=== PATIENT | female | born 1955 | race Two or more races ===

== ENCOUNTER 2024-06-29 16:13 | Inpatient (IN) | payer MEDICARE, MEDICAID, SELFPAY ==
[2024-06-29] VITALS (28 sets, daily range): BP systolic 123–213; BP diastolic 78–121; PULSE 89–109; RESP 15–99; TEMP 36.8–36.9; O2SAT 96–100; BMI 27.4; BMI 62.5; BMI 20.7
--- NOTE | 2024-06-29 16:15 | PC.NURSE ---
Pt coming from ED [facility]; per pt, I started noticing weakness on my legs this morning when I woke up but felt better throughout the day. Per pt's daughter, my aunt said she didn't notice any facial drooping this morning when she saw my mom at 10AM, but when I saw her at 4PM today, I noticed the drooping on the right side of her face. Pt's last known well at 1999 yesterday (06/28/2024) Pt reports having DM and HTN but does not take any meds at home.
--- NOTE | 2024-06-29 16:19 | EKG_ITS ---
[facility] Test Date: 2024-06-29 Pat Name: JYOTSNA CABRERA Department: Room: - Gender: Female Computerized [employer] Rec[employer]: : 1955 Requested By: Andre Stiles Order Number: [id number] Reading MD: Andre Stiles Measurements Intervals [place] Rate: 106 P: 50 W[place]: 162 QRS: -16 QRSD: 77 T: 30 QT: 362 QTc: 482 Interpretive Statements SINUS TACHYCARDIA MINIMAL ST DEPRESSION [0.025+ mV ST DEPRESSION] ABNORMAL RHYTHM ECG No previous ECG available for comparison /store/S0/[id number]
--- NOTE | 2024-06-29 16:19 | XR_ITS ---
Examination: CTA carotids with intravenous contrast CTA brain, head with intravenous contrast. 2-D sagittal, coronal reconstructions. 3-D reconstructions. Exam date and time: June 29, 2024 1631 hrs. Indications: Stroke alert, onset right facial droop left leg heaviness weakness beginning 8:00 PM last night CTDI: vol (mGy) 16.8 DLP: (mGycm) 980 Technique: Multiple CTA axial brain, head carotid images post intravenous contrast injection 75 cc, [id number]. 2-D sagittal, coronal reconstructions. 3-D reconstructions, 3-D post processing including vascular maximum intensity projection images. Low dose protocols were performed. One or more of the following dose reduction techniques were used; automated exposure control, adjustment of the mA and/or KV according to patient size, use of iterative reconstruction technique. Findings: 6 mm left thyroid nodule No significant common carotid carotid bifurcation or internal carotid artery stenoses Dominant left vertebral artery with no critical stenoses Suspicious for 60% stenosis right posterior cerebral artery junction P1 P2 segments Middle cerebral anterior cerebral branches demonstrate no large vessel occlusions Impression: No significant neck arterial stenoses Suspicious for 60% stenosis right posterior cerebral artery junction P1 P2 segments
--- NOTE | 2024-06-29 16:19 | EDNOTE_ITS ---
Neuro Symptoms Deficit-E/HPI General Chief Complaint: Neuro Symptoms/Deficit Stated Complaint: FACIAL DROOP SINCE THIS AM AT 7AM Time Seen by Provider: 06/29/24 16:18 Arrival date/time: 06/29/24 16:13 RME / HPI RME / HPI Narrative: 68-year-old female patient with significant history of hypertension, diabetes mellitus, not on any medication. Was noted to have facial droop since 10:00 this morning, patient's family/sister visited her this morning but did not tell anybody. Patient did not look at her face in the mirror since woke up at 7 this morning. Her daughter saw her few minutes prior to ER visit and decided to bring her to the emergency room. She was also noted to have slurring with speech. Patient denies any upper extremity weakness however she told me that her left lower leg feels heavy and ataxic. I asked her to walk and she was able to walk with mild dragging on the left. Patient denies any headache denies any dizziness denies any blurry vision. No medication was taken prior to arrival. Related Data Allergies Allergy/AdvReac Type Severity Reaction Status Date / Time No Known Allergies Allergy Verified 06/29/24 16:16 Review of Systems Review of Systems Narrative Review of Systems: Review of system reviewed and within normal limits except mentioned in HPI ED Exam Narrative Physical exam: VITAL SIGNS: Reviewed. GENERAL APPEARANCE: Alert and interactive, follows commands, no acute distress, GCS of 15 HEAD AND FACE: Facial symmetry/facial droop noted on the left, tongue midline on protrusion ENT: PERRL, pink conjunctivitis, eyelid no trauma, Mucous membrane moist. NECK: Supple, nontender, no nuchal rigidity. CHEST: No tenderness, no crepitus, no paradoxical movement, no retractions. LUNGS: Clear, well ventilated, symmetric, no rales, no wheezing, no ronchi, no stridor, good breath sounds bilaterally. HEART: Regular rate, regular rhythm, no murmur, no gallops. ABDOMEN: Soft, positive bowel sounds, nondistended, no guarding, nontender, no rebound, no masses, RECTAL: Deferred. GENITAL: Deferred. NEUROLOGICAL: Gross motor function intact sensory function intact, Appropriate for age. MUSCULOSKELETAL: low back nontender, full range of motion. EXTREMITIES: Nontender, full range of motion bilateral lower extremity, slight weakness on the left lower, bilateral upper extremity no weakness noted handgrip is equal and strong, no drifting noted SKIN: Color pink, dry, no rash, no lacerations, no abrasions, no contusions. LYMPHATICS: Deferred. Course Quality Measures none Orders Category Date Time Status Bedside Blood Glucose NOW Care 06/29/24 16:19 Active COVID-19 Screening Questionnaire NOW Care 06/29/24 17:45 Active Entry Analyst NOW Care 06/29/24 16:19 Active Continuous Pulse Oximetry NOW Care 06/29/24 16:19 Completed Decision to Admit X1 Care 06/29/24 17:45 Active EKG (ED ONLY) *Do not use* NOW Care 06/29/24 16:19 Completed In and Out Catheter NEEDED Care 06/29/24 16:19 Active Insert IV NOW Care 06/29/24 16:19 Active NIH Stroke Scale now Care 06/29/24 16:19 Active NPO NOW Care 06/29/24 16:19 Active Nurse Swallow Screen x1 Care 06/29/24 16:19 Active Consult to Neurology / Tele-Neurology Routine Cons 06/29/24 16:[address] angio stroke protocol Stat Exams 06/29/24 16:[address] stroke protocol Stat Exams 06/29/24 16:19 Completed EKG (ED Only) Stat Exams 06/29/24 16:19 Draft CBC Stat Lab 06/29/24 16:29 Completed Comprehensive Metabolic Panel Stat Lab 06/29/24 16:29 Completed Drug Screen,Urine Stat Lab 06/29/24 17:10 Completed Magnesium Stat Lab 06/29/24 16:29 Completed Partial Thromboplastin Time Stat Lab 06/29/24 16:29 Received Prothrombin Time with INR Stat Lab 06/29/24 16:29 Received Troponin I Stat Lab 06/29/24 16:29 Completed Urinalysis Stat Lab 06/29/24 17:10 Completed Urine Culture Stat Lab 06/29/24 17:10 Received Aspirin Supp Med 06/29/24 16:59 Discontinued 300 mg MT X1 ONE Labetalol IV [Trandate IV] Med 06/29/24 16:41 Discontinued 20 mg IVP X1 ONE Ondansetron Inj [Zofran Inj] Med 06/29/24 16:19 Active 4 mg IV Q4HR PRN cefTRIAXone/D5w 1gm IV premix [Rocephin/D5w 1gm IV Med 06/29/24 17:44 Active premix] 50 ml IV X1 Oxygen Delivery NOW RT 06/29/24 16:19 Active Vital Signs Vital signs: Vital Signs Temperature 98.4 F 06/29/24 16:37 Pulse Rate 109 H 06/29/24 16:37 Respiratory Rate 16 06/29/24 16:37 Blood Pressure 213/113 H 06/29/24 16:37 Pulse Oximetry (%) 99 06/29/24 16:37 Oxygen Delivery Method Room Air 06/29/24 16:37 Neuro Symptoms / Deficit MDM Narrative MDM Narrative:: male patient with significant history of hypertension, diabetes mellitus, not on any medication. Was noted to have facial droop since 10:00 this morning, patient's family/sister visited her this morning but did not tell anybody. Patient did not look at her face in the mirror since woke up at 7 this morning. Her daughter saw her few minutes prior to ER visit and decided to bring her to the emergency room. She was also noted to have slurring with speech. Patient denies any upper extremity weakness however she told me that her left lower leg feels heavy and ataxic. I asked her to walk and she was able to walk with mild dragging on the left. Patient denies any headache denies any dizziness denies any blurry vision. No medication was taken prior to arrival. 420 pm stroke alert was initiated right away on my initial evaluation 445 pm spoke with teleneurologist who recommends admission for further management. And workup. Patient also needs to be given labetalol IV, aspirin and Plavix. Patient did not qualify for swallow eval, so patient was only given aspirin suppository. And labetalol IV blood pressure was noted to be 163/94 after labetalol IV. Patient data External records reviewed:: None Clinical information provided by:: none Social determinants that could affect healthcare access:: none Patient has the following chronic illnesses:: Hypertension, diabetes mellitus How is presenting disease/condition affected by chronic disease/condition?: exacerbated by Evaluation data The following diagnostics were reviewed and interpreted by me:: lab results, radiology exam(s) and EKG tracing(s) Lab and/or radiology exams considered but not ordered:: None Interpretation Summary: EKG showed sinus tachycardia, ventricular to 106 bpm, no ST segment elevation depression noted. CT scan of the head came back unremarkable. CT angiogram of the head and neck showed Suspicious for 60% stenosis right posterior cerebral artery junction P1 P2 segments Laboratory workup significant for a blood sugar of 440, with no sign of diabetic ketoacidosis. Urinalysis positive for UTI EKG as interpreted by me shows sinus tachycardia, ventricular rate 106 bpm, MT interval 162 MS, no ST segment elevation depression noted. Medications / Prescriptions Medications or Prescriptions considered but not ordered:: None Medication administrations:: Medication Administration History Ceftriaxone Sodium/Dextrose (Rocephin/D5w 1gm Iv Premix) 50 mls @ 100 mls/hr IV X1 ONE Stop: 06/29/24 18:13 Ondansetron HCl (Ondansetron Inj 2 Mg/Ml Inj 2 Ml) 4 mg IV Q4HR PRN PRN Reason: NAUSEA OR VOMITING Stop: 07/29/24 16:18 Last Admin: 06/29/24 16:58 Dose: 4 mg Documented By: Discontinued Medications Aspirin (Aspirin 300 Mg Supp) 300 mg MT X1 ONE Stop: 06/29/24 17:00 Last Admin: 06/29/24 17:13 Dose: 300 mg Documented By: Labetalol HCl (Labetalol Inj 5 Mg/Ml Vial 20 Ml) 20 mg IVP X1 ONE Stop: 06/29/24 16:42 Last Admin: 06/29/24 17:03 Dose: 20 mg Documented By: Aspirin and labetalol. Patient also was given ceftriaxone IV. Consultations Consultation(s) initiated? (list below): No Diagnosis Neuro Differential Diagnosis: subarachnoid hemorrhage, cerebrovascular accident, transient cerebral ischemia and other Most likely diagnosis given after review of the tests above:: CVA Admission Indicated Admission indicated?: indicated Explain why admission is indicated or not indicated:: Patient is to be admitted for further workup. Admission Request Was there a request for admission?: Yes Admission Attestation Admission request attestation: Discussed case with [Dr. Og] from Hospitalist service regarding admission. Discussed patients ED course, exam findings, labs, and radiology results. The Hospitalist [agrees] to accept the patient for admission. Disposition Plan Disposition Plan: Admit Discharge Plan Plan Patient Disposition: Admit Acute Care w/in Hospital Disposition Comment: stable Prescriptions/Referrals Referrals: No Primary/Family,Physician [Primary Care Provider] - In 1 week Problem List Clinical Impression: Cerebrovascular accident, UTI (urinary tract infection) Patient/Caregiver Discharge Instructions Print Language: Belarusian Stand Alone Forms: Whit Award Info., Patient Portal Info Letter
--- NOTE | 2024-06-29 16:19 | XR_ITS ---
Examination: CT brain head without contrast. 2-D sagittal coronal reconstructions Date and time of exam:June 29, 2024 1624 hrs. Indications: Stroke alert, onset right-sided facial droop beginning 8:00 PM last night CTDI: vol (mGy):47.4 DLP: (mGycm):980 Technique: Multiple CT axial sections of the brain have been obtained, 5 mm slice thickness. Contrast has not been administered. 2-D sagittal, coronal reconstructions have been obtained Low dose protocols were performed. One or more of the following dose reduction techniques were used; automated exposure control, adjustment of the mA and/or KV according to patient size, use of iterative reconstruction technique. Findings: No significant ventricular enlargement. 3 mm infarct left kirsten, axial image 30 Intra-axial or extra-axial hemorrhage density is not seen. No mass effect or midline shift Basal cisterns are not remarkable. Fourth ventricle is midline. Cranial vault intact. Impression: Negative for acute hemorrhage, mass effect or midline shift Age indeterminate small infarct left brainstem pontine level, recommend brain MRI follow-up
--- NOTE | 2024-06-29 16:20 | PC.NURSE ---
TELE SPECIALIST WAS ACTIVATED CONF. # [id number]
--- NOTE | 2024-06-29 16:20 | PC.NURSE ---
Tele-neurologist activated at this time and saw pt at CT scan.
--- NOTE | 2024-06-29 16:20 | PC.NURSE ---
tele stroke activated conf # [id number]
[2024-06-29 16:46] LABS: Basophils # (Auto) 0.1 Thou/mm3 (0.0-0.2); Basophils % (Auto) 1 % (0-2.5); Eosinophils # (Auto) 0.2 Thou/mm3 (0.0-0.5); Eosinophils % (Auto) 3 % (0-10); Hematocrit 44.4 % (36.0-46.0); Hemoglobin 14.8 g/dL (12.0-16.0); Immature Granulocytes % (Auto) 0 % (0-0); Immature Granulocytes Auto 0.03 Thou/mm3 (0.00-0.00); Lymphocytes # (Auto) 2.1 Thou/mm3 (1.0-4.8); Lymphocytes % (Auto) 25 % (10-50); Mean Corpuscular HGB Conc 33.3 g/dl (31.0-37.0); Mean Corpuscular Hemoglobin 29.8 pg (25.0-35.0); Mean Corpuscular Volume 89 fL (80-100); Monocytes # (Auto) 0.7 Thou/mm3 (0.0-0.8); Monocytes % (Auto) 8 % (0-12); Neutrophils # (Auto) 5.6 Thou/mm3 (1.8-7.7); Neutrophils % (Auto) 64 % (37-80); Nucleated Red Blood Cell % 0 /100 WBC (0); Platelet Count 257 Thou/mm3 (140-440); RDW Standard Deviation 43.2 fL (36.4-46.3); Red Blood Count 4.97 Miln/mm3 (4.00-5.20); White Blood Count 8.7 Thou/mm3 (3.6-11.0)
--- NOTE | 2024-06-29 16:49 | PC.NURSE ---
Pt's cross necklace given to daughter, Sofiya.
[2024-06-29] MEDS: ONDANSETRON INJ 2 MG/ML INJ 2 ML 4 MG IV (16:58)
[2024-06-29] MEDS: LABETALOL INJ 5 MG/ML VIAL 20 ML 20 MG IVP (17:03)
[2024-06-29 17:10] LABS: Alanine Aminotransferase 15 U/L (10-49); Albumin, Serum 5.1 gm/dL (3.4-4.8); Albumin/Globulin Ratio 1.8 (1.2-2.2); Alkaline Phosphatase 137 U/L (46-116); Anion Gap 9 (7-16); Aspartate Amino Transferase 18 U/L (0-34); BUN/Creatinine Ratio 20 Ratio (12-20); Bilirubin,Total 0.7 mg/dL (0.3-1.2); Blood Urea Nitrogen 16 mg/dL (9-23); Calcium 9.7 mg/dL (8.3-10.6); Calcium (Corrected) 9.7 mg/dL (8.5-10.1); Chloride 100 mMol/L (98-107); Creatinine (Component) 0.8 mg/dL (0.6-1.3); Globulin 2.9 gm/dL (2.3-3.5); Magnesium 2.2 mg/dL (1.6-2.6); Osmolality,Calculated 290 (275-295); Potassium 3.7 mMol/L (3.4-5.1); Sodium 135 mMol/L (136-145); eGFR > 60 See Note
[2024-06-29 17:11] LABS: Troponin I < 0.020 ng/mL (0.0-0.045)
[2024-06-29] MEDS: ASPIRIN 300 MG SUPP PR (17:13)
[2024-06-29 17:27] LABS: Glucose 440 mg/dL (74-106)
[2024-06-29 17:30] LABS: Collection Type, Urine Clean Catch
[2024-06-29 17:36] LABS: Bacteria,Urine Rare; Bilirubin,Urine Negative (Negative); Blood,Urine Negative (Negative); Clarity,Urine Clear (Clear/Hazy); Color,Urine Lt-Yellow (Lt Yel-Yel); Glucose, Urine 4+ (Negative); Ketones,Urine Negative (Negative); Leukocyte Esterase,Urine Positive (Negative); Nitrite,Urine Positive (Negative); Protein,Urine Trace (Neg - Trace); RBC,Urine 24 /hpf (0-3); Specific Gravity,Urine 1.041 (1.001-1.035); Squamous Epithelial Cell,Urine 5 /hpf (0-5); Urobilinogen,Urine Negative mg/dL (0.0-1.0); WBC,Urine 49 /hpf (0-5)
--- NOTE | 2024-06-29 17:37 | PD.TNEURO ---
Tele Neuro Consultation Consultation Date 06/29/24 Most Recent Vital Signs Last Vital Signs Temp 98.2 F 06/29/24 17:17 Pulse 92 06/29/24 17:17 Resp 23 H 06/29/24 17:17 BP 163/94 H 06/29/24 17:17 Pulse Ox 97 06/29/24 17:17 O2 Del Method Room Air 06/29/24 17:17 Consultation Narrative [facility] Tele[facility]rology Consult [facility] Patient Name: Nkechi Beltran Date of : 1955 Identification Number: Date of Service: 06/29/2024 16:19:49 Diagnosis: ? I63.431 - Cerebrovascular accident (CVA) due to embolism of right posterior cerebral artery (HCCC) Impression: ? 68 y/o woman with past medical history of HTN, DMII (untreated) with facial droop and ataxia R UE. NIHSS = 4. BP severely elevated. BG also significantly elevated. CT/head without hemorrhage. CTA without LVO but 60% stenosis R POSTDOCTORAL RESEARCH FELLOW--concern for R cerebellar ischemia. Not a lytic candidate due to time LKW; not an ZELALEM candidate due to lack of LVO. Recommend: ASA 325 now and daily (may give clopidogrel 300mg x 1 only as originally directed but would continue just ASA only until MRI performed--evaluate size of ischemia, consider risk of hemorrhagic transformation with DAPT). MRI/brain. HbA1c. Likely will need DM teaching; BP rec's 180-200s over next 24h. PT/OT/AUTOMOBILE INSURANCE CLAIM EXAMINER eval. ECHO. Neuro f/u. Our recommendations are outlined below. Recommendations: ? Stroke/Telemetry Floor ? Neuro Checks ? Bedside Swallow Eval ? DVT Prophylaxis ? IV Fluids, Normal Saline ? Head of Bed 30 Degrees ? Euglycemia and Avoid Hyperthermia (PRN Acetaminophen) ? Initiate or continue Aspirin 325 MG daily Sign Out: ? Discussed with Emergency Department Provider Advanced Imaging: CTA Head and Neck Completed. LVO:No Patient in not a candidate for ZELALEM Metrics: Last Known Well: 06/28/2024 20:00:00 Dispatch Time: 06/29/2024 16:19:49 Arrival Time: 06/29/2024 16:14:00 Initial Response Time: 06/29/2024 16:23:02 Symptoms: facial droop R . Initial patient interaction: 06/29/2024 16:29:40 NIHSS Assessment Completed: 06/29/2024 16:34:20 Patient is not a candidate for Thrombolytic. Thrombolytic Medical Decision: 06/29/2024 16:34:21 Patient was not deemed candidate for Thrombolytic because of following reasons: LKW outside 4.5 hr window. . I personally Reviewed the CT Head and it Showed no acute findings such as ischemia or hemorrhage. wik Radiologist was not called back for review of advanced imaging. Primary Provider Notified of Diagnostic Impression and Management Plan on: 06/29/2024 16:40:17 History of Present Illness: Patient is a 68 year old Female. Patient was brought by private transportation with symptoms of facial droop R . 68 y/o woman with past medical history of HTN, DMII (untreated, has not seen a physician for several years) whose LKW was last pm; she woke up this am at 0700, but was not seen to have a facial droop until family noticed at 1000, brought her in to ED around 1600. Not on medications or ASA. Past Medical History: ? Hypertension ? Diabetes Mellitus ? There is no history of Atrial Fibrillation ? There is no history of Coronary Artery Disease ? There is no history of Stroke ? There is no history of Seizures Medications: No Anticoagulant use No Antiplatelet use Reviewed EMR for current medications Allergies: NKDA Social History: Smoking: No Family History: There is no family history of premature cerebrovascular disease pertinent to this consultation ROS : 14 Points Review of Systems was performed and was negative except mentioned in HPI. Past Surgical History: There Is No Surgical History Contributory To Today?s Visit Examination: BP(231/129), Pulse(109), Blood Glucose(423) 1A: Level of Consciousness - Alert; keenly responsive + 0 1B: Ask Month and Age - Both Questions Right + 0 1C: Blink Eyes & Squeeze Hands - Performs Both Tasks + 0 2: Test Horizontal Extraocular Movements - Normal + 0 3: Test Visual Perez - No Visual Loss + 0 4: Test Facial Palsy (Use Grimace if Obtunded) - Minor paralysis (flat nasolabial fold, smile asymmetry) + 1 5A: Test Left Arm Motor Drift - No Drift for 10 Seconds + 0 5B: Test Right Arm Motor Drift - Drift, but doesn't hit bed + 1 6A: Test Left Leg Motor Drift - No Drift for 5 Seconds + 0 6B: Test Right Leg Motor Drift - No Drift for 5 Seconds + 0 7: Test Limb Ataxia (FNF/Heel-Chaudhry) - Ataxia in 1 Limb + 1 8: Test Sensation - Normal; No sensory loss + 0 9: Test Language/Aphasia - Normal; No aphasia + 0 10: Test Dysarthria - Mild-Moderate Dysarthria: Slurring but can be understood + 1 11: Test Extinction/Inattention - No abnormality + 0 NIHSS Score: 4 NIHSS Free Text : R facial droop EKG: SR, tachy Pre-Morbid Modified Coleman Scale: 0 Points = No symptoms at all Spoke with : Perico This consult was conducted in real time using interactive audio and video technology. Patient was informed of the technology being used for this visit and agreed to proceed. Patient located in hospital and provider located at home/office setting. Patient is being evaluated for possible acute neurologic impairment and high probability of imminent or life-threatening deterioration. I spent total of 35 minutes providing care to this patient, including time for face to face visit via telemedicine, review of medical records, imaging studies and discussion of findings with providers, the patient and/or family. Dr Karen Burton [facility] For Inpatient follow-up with [facility] physician please call [facility] at . As we are not an outpatient service for any post hospital discharge needs please contact the hospital for assistance. If you have any questions for the [facility] physicians or need to reconsult for clinical or diagnostic changes please contact us via [facility] at .
[2024-06-29 17:39] LABS: Amphetamine/Methamp Scrn,U Negative (Negative); Barbiturate Screen,Urine Negative (Negative); Benzodiazepines Screen,Urine Negative (Negative); Benzoylecgonine Screen, Ur Negative (Negative); Fentanyl Screen,Urine Negative (Negative); Opiate Screen,Urine Negative (Negative); THC Screen,Urine Negative (Negative)
[2024-06-29] MEDS: cefTRIAXone/D5w 1gm IV premix 50 ML IV (17:48)
[2024-06-29 17:51] LABS: Partial Thromboplastin Time 25.2 Seconds (22.0-36.0); Prothrombin Time 10.6 Seconds (9.0-12.2)
--- NOTE | 2024-06-29 17:55 | PC.NURSE ---
Zuri Stiles SKULL SPLITTER notified that pt's blood glucose is 440 at this time; no new orders received.
--- NOTE | 2024-06-29 18:29 | ECHO_ITS ---
Transthoracic Echo Report Ht (in): 64 Wt (lb): 160 Exam Location: Portable Status: Emergency Cover Cutter Machine: Brittany Razo Indications: Procedure Performed: BP: 147 / 84 HR: 86 Rhythm: Sinus Technical Quality: Fair Contrast: Agitated Saline Total Dose (mL): MEASUREMENTS (Male / Female) Normal Values 2D ECHO LV Diastolic Diameter PLAX 3.9 cm 4.2 - 5.9 / 3.9 - 5.3 cm LV Systolic Diameter PLAX 2.8 cm IVS Diastolic Thickness 0.9 cm 0.6 - 1.0 / 0.6 - 0.9 cm LVPW Diastolic Thickness 0.8 cm 0.6 - 1.0 / 0.6 - 0.9 cm LV Relative Wall Thickness 0.4 LVOT Diameter 1.8 cm LA Volume Index 21.4 cm?/m? 16 - 28 cm?/m? Ascending Aorta Diameter 3.0 cm M-MODE Aortic Root Diameter MM 2.4 cm LA Systolic Diameter MM 3.5 cm LA Ao Ratio MM 1.5 AV Cusp Separation MM 1.9 cm DOPPLER AV Peak Velocity 121.0 cm/s AV Peak Gradient 5.9 mmHg AV Mean Gradient 3.0 mmHg AV Velocity Time Integral 24.0 cm LVOT Peak Velocity 91.6 cm/s LVOT Peak Gradient 3.4 mmHg LVOT Velocity Time Integral 21.3 cm LVOT Cardiac Index 2548.9 cm?/min?m? AV Area Cont Eq vti 2.3 cm? AV Area Cont Eq pk 1.9 cm? MV Peak Velocity 125.0 cm/s MV Peak Gradient 6.3 mmHg MV Mean Velocity 71.4 cm/s MV Mean Gradient 3.0 mmHg MV Area PHT 6.9 cm? Mitral E Point Velocity 65.5 cm/s Mitral A Point Velocity 121.0 cm/s Mitral E to A Ratio 0.5 LV E' Lateral Velocity 6.4 cm/s Mitral E to LV E' Lateral Ratio 10.2 LV E' Septal Velocity 5.9 cm/s Mitral E to LV E' Septal Ratio 11.2 TR Peak Velocity 202.0 cm/s TR Peak Gradient 16.3 mmHg FINDINGS Left Ventricle Normal left ventricular size, wall thickness, systolic function with no obvious regional wall motion abnormalities. The ejection fraction is visually estimated at 55-60 %. Right Ventricle The right ventricle is normal in size and systolic function. The estimated right ventricular systoli c pressure, 21mmHg. RAP 5. Left Atrium The left atrium is normal by two-dimensional, color flow and Doppler imaging with no structural abnormalities, no thrombus formation present. Right Atrium The right atrium is normal by two-dimensional imaging, color flow and Doppler imaging with no struct ural abnormalities, no thrombus formation present. Atrial Septum The interatrial septum appears normal with no evidence of a shunt. Aorta The aorta is normal by two-dimensional, color flow and Doppler interrogation. Mitral Valve The mitral valve is normal by two-dimensional, color flow and Doppler interrogation. There is trace mitral valve regurgitation. Aortic Valve The aortic valve is trileaflet and normal by two-dimensional, color flow and Doppler interrogation. There is no significant aortic valve regurgitation. Tricuspid Valve The tricuspid valve is normal by two-dimensional, color flow and Doppler interrogation. There is tra ce tricuspid valve regurgitation. Pulmonic Valve There is no significant pulmonic valve regurgitation. Vessels The pulmonary artery appears normal. The inferior vena cava pulmonary and hepatic veins appear larisa l. Pericardium The pericardium is normal by two-dimensional imaging. There is no significant pericardial effusion. CONCLUSIONS Negative bubble study. No evidence of PFO or ASD. Normal LV size and function. Estimated EF 55-60% Normal RV size and function. Trace MR, TR. Edel Berrios (Electronically Signed) Final Date: 02 July 2024 10:10
--- NOTE | 2024-06-29 18:35 | ESHP_ITS ---
<Statement entered by Rosaura Og DO - 06/30/24 10:53> Senior attestation: Patient was examined and case was reviewed with team including attending physician. Note reviewed, I agree with most of its contents and agree with the patient's care. Patient is a 68 year old female with history of hypertension and T2DM who presented to [facility] with concerns of facial droop and right sided upper and lower extremity weakness, found to have NIHSS of 4 but was past window of tPA given last well known time per tele-neurology, will be admitted to telemetry for further investigation of possible CVA. Imaging revealed evidence of age indeterminate small infarct left brainstem pontine level, will order MRI, echo and neurology recommendations, will have close monitoring and will consider stat repeat head/brain CT if patients develops any new headaches or worsening symptoms. Rosaura Og DO PGY-3 Documentation for date of: 06/29/24 HPI History of Present Illness Chief complaint: Facial droop History of present illness: Ms. Beltran is a 68-year-old female with past medical history of hypertension and diabetes mellitus, not on any medications who presented to [facility] with a chief complaint of Facial droop, slurring of speech and ataxia. According to the patient she woke up at 7 AM this morning, experienced she was having difficulty walking, was unable to take a shower, patient's sister saw the patient around 10 AM, noticed mild facial droop, patient did not notice symptoms of slurring of speech and extensive facial droop on the right until the patient's daughter saw the patient later in the evening. Currently patient denies any weakness, did report some right-sided weakness to the ED physician. 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 Of note patient has history of diabetes and hypertension, does not follow-up regularly with a PCP and denies taking any medications at home. Patient denies any dysuria. ED Course: ED Vitals: On presentation BP 213/113, P 109, RR 16 temp 98.4, O2 sat 99 ED Labs: ED labs significant for sodium 135 glucose 440, alk phos 137, albumin 5.1, urine specific gravity 1.041, urine glucose 4+, urine nitrate positive, urine leukocyte esterase positive, urine RBC 24, urine WBC 49, urine bacteria rare, urine talk screen negative ED Imaging:CT scan of head and ED shows Age indeterminate small infarct left brainstem pontine level head and neck CTA shows Suspicious for 60% stenosis right posterior cerebral artery junction P1 P2 segments EKG shows sinus tachycardia, QTc 482 ED Treatment:Patient was given Zofran, labetalol, aspirin AL and ceftriaxone in ED. patient failed nurse swallow screen in ED, teleneuro was consulted. Review of Systems Review of Systems Narrative Review of Systems: ROS: -CONSTITUTIONAL: Denies weight loss, fever and chills. -HEENT: Denies changes in vision and hearing. -RESPIRATORY: Denies SOB and cough. -CV: Denies palpitations and Chest Pain. -GI: Denies abdominal pain, nausea, vomiting,constipation and diarrhea. -: Denies dysuria and urinary frequency. -MSK: Denies myalgia and joint pain. -SKIN: Denies rash and pruritus. -NEUROLOGICAL: Denies headache and syncope. Positive for right facial droop, slurring of speech and ataxia. -PSYCHIATRIC: Denies recent changes in mood. Denies anxiety and depression. Past Medical History Past Medical History Comments PMH COMMENT: PMH: Positive for diabetes mellitus, hypertension and hyperlipidemia PSHx: Not significant Allergies: No known allergies Social history: -Smoking: Denies -Alcohol Use: Reports occasional use -Illicit Drug Use: Denies Family History: Positive for family history of diabetes in father Exam Vital Signs Temp Pulse Resp BP Pulse Ox O2 Del Method 98.2 F 90 20 166/85 H 99 Room Air 06/29/24 17:17 06/29/24 18:18 06/29/24 18:18 06/29/24 18:18 06/29/24 18:18 06/29/24 18:18 Narrative Exam Physical Exam General: Awake and in no acute distress. Conversational and non-toxic appearing. HEENT: Normocephalic, atraumatic, mucous membranes moist. Heart: Regular rate and rhythm, no murmurs. Lungs: Clear to auscultation with no wheezing or crackles. Abdomen: Soft, obese, nondistended, nontender, positive bowel sounds. ?No guarding or rebound tenderness. Neurologic: Alert and oriented x3, right-sided facial droop, and patient able to move all 4 extremities. No slurring of speech noted. Extremities: No edema. Skin: No rash or ecchymoses. Results: Labs 07/02/24 08:08 07/02/24 08:08 Labs: Short CBC 06/29/24 Range/Units 16:29 WBC 8.7 (3.6-11.0) Thou/mm3 Hgb 14.8 (12.0-16.0) g/dL Hct 44.4 (36.0-46.0) % Plt Count 257 (140-440) Thou/mm3 BMP 06/29/24 16:29 Sodium 135 L Potassium 3.7 Chloride 100 Carbon Dioxide 26.0 BUN 16 Creatinine 0.8 Glucose 440 H* Calcium 9.7 Cardiac Enzymes 06/29/24 Range/Units 16:29 Troponin I < 0.020 (0.0-0.045) ng/mL Liver Function 06/29/24 Range/Units 16:29 Total Bilirubin 0.7 (0.3-1.2) mg/dL AST 18 (0-34) U/L ALT 15 (10-49) U/L Alkaline Phosphatase 137 H (46-116) U/L Albumin 5.1 H (3.4-4.8) gm/dL Urine 06/29/24 Range/Units 17:10 Urine Color Lt-Yellow (Lt Yel-Yel) Urine Clarity Clear (Clear/Hazy) Urine pH 7.0 (5.0-7.0) Ur Specific [place] 1.041 H (1.001-1.035) Urine Protein Trace (Neg - Trace) Urine Glucose (UA) 4+ A (Negative) Quality Measures Quality Measures none Advance care planning discussed with:: patient and child Medications Home Medications and Allergies Allergies Allergy/AdvReac Type Severity Reaction Status Date / Time codeine Allergy Verified 06/29/24 19:27 Visit Medications Acetaminophen (Acetaminophen Supp 650 Mg Supp) 650 mg AL Q6HR PRN PRN Reason: [id number] Stop: 07/29/24 18:24 Aspirin (Aspirin Ec 81 Mg Tabec) 81 mg PO QDAY DOMINGO Stop: 07/30/24 08:59 Dextrose (Dextrose 50%-Water Inj 50 Ml Syringe) 25 ml IV Q15MIN PRN PRN Reason: BG 50-70 responsive npo pt Stop: 07/29/24 18:29 Dextrose (Dextrose 50%-Water Inj 50 Ml Syringe) 50 ml IV Q15MIN PRN PRN Reason: BG <50 OR BG <70 & pt unresponsive Stop: 07/29/24 18:29 Glucagon (Glucagon Inj 1 Mg Vial) 1 mg IM Q15MIN PRN PRN Reason: BG <70, and no IV access Insulin Human Lispro (Insulin Lispro (Admelog) 1 Unit/0.01 Ml Unit) 0 unit SC ACHS [facility]; Protocol Stop: 07/29/24 20:59 Labetalol HCl (Labetalol Inj 5 Mg/Ml Vial 20 Ml) 10 mg IVP Q6H PRN PRN Reason: HTN, SBP > 200 Stop: 07/29/24 18:29 Ondansetron HCl (Ondansetron Inj 2 Mg/Ml Inj 2 Ml) 4 mg IV Q4HR PRN PRN Reason: NAUSEA OR VOMITING Stop: 07/29/24 16:18 Last Admin: 06/29/24 16:58 Dose: 4 mg Ondansetron HCl (Ondansetron Inj 2 Mg/Ml Inj 2 Ml) 4 mg IV Q6H PRN; Protocol PRN Reason: NAUSEA OR VOMITING Stop: 07/29/24 18:24 Pantoprazole Sodium (Pantoprazole Inj 40 Mg Vial) 40 mg IVP QDAY [facility] Stop: 07/30/24 08:59 Discontinued Medications Aspirin (Aspirin 300 Mg Supp) 300 mg AL X1 ONE Stop: 06/29/24 17:00 Last Admin: 06/29/24 17:13 Dose: 300 mg Ceftriaxone Sodium/Dextrose (Rocephin/D5w 1gm Iv Premix) 50 mls @ 100 mls/hr IV X1 ONE Stop: 06/29/24 18:13 Last Infusion: 06/29/24 18:21 Dose: Infused Labetalol HCl (Labetalol Inj 5 Mg/Ml Vial 20 Ml) 20 mg IVP X1 ONE Stop: 06/29/24 16:42 Last Admin: 06/29/24 17:03 Dose: 20 mg Assessment & Plan Plan Assessment and plan: Summary: Ms. Beltran is a 68-year-old female with past medical history of hypertension and diabetes mellitus, not on any medications who presented to [facility] with a chief complaint of Facial droop, slurring of speech and ataxia. Patient admitted for stroke workup. # CVA # Stroke workup # Facial droop # Ataxia -Patient does report that her symptoms did start when she woke up, progressed throughout the day, reported right-sided facial droop, difficulty ambulating and slurring of speech, MANAGER GENERAL unknown, patient poor candidate for tPA. -Patient does have history of diabetes mellitus and hypertension, poorly managed outpatient. -CT scan of head and ED shows Age indeterminate small infarct left brainstem pontine level head and neck CTA shows Suspicious for 60% stenosis right posterior cerebral artery junction P1 P2 segments EKG shows sinus tachycardia, QTc 482 -Patient was seen by teleneuro in ED, NIHSS 4, right-sided facial droop noted, teleneuro recommends aspirin, MRI, A1c, blood pressure recommendations 180-200 over the next 24 hours, PT/E[employer]IC [employer] TECHNICAL eval, echo and neurology follow-up. -Patient was given aspirin 325 as needed in ED, patient failed swallow eval in ED, patient was given labetalol 20 mg by teleneuro for elevated blood pressure and patient was given Zofran Plan: -Aspirin 81 mg starting tomorrow, no Plavix -Follow MRI brain -Follow-up echo with bubble study -Ordered lipid panel, A1c and TSH -Keep n.p.o. -Neuro swallow screen -Neurochecks every 4 hours -Head of bed elevated more than 30 degrees -Aspiration precautions -Allow permissive hypertension, keep blood pressure less than 200 for 24 hours, labetalol 10 mg as needed for blood pressure more than 200 -Referral to speech therapy -Referral to physical therapy -Monitor patient closely, if patient develops headache considered repeating imaging. #Diabetes mellitus -Patient does have history of diabetes, has poor outpatient follow-up does not take any medications at home Plan: -Lispro sliding scale insulin -Fingerstick blood glucose checks -Follow A1c in a.m. -Hypoglycemia protocol in place -Inpatient blood glucose target range 140-180 # Asymptomatic bacteriuria -Patient denies any dysuria or other symptoms, was given ceftriaxone in ED -UA was significant for urine specific gravity 1.041, urine glucose 4+, urine nitrate positive, urine leukocyte esterase positive, urine RBC 24, urine WBC 49, urine bacteria rare Plan: -Follow urine culture # Hypertension -Will allow permissive hypertension for 24 hours DVT prophylaxis: SCDs GI prophylaxis: IV Protonix Diet: N.p.o. Lines: Peripheral IV Code status: Full code Physical Therapy: Ordered, pending Case discussed with Attending Dr. Salazar and Dr. Og PGY3. Terence Navarro PGY1 Attending Provider Attestation/Addendum 68-year-old female with history of hypertension, hyperlipidemia and type 2 diabetes mellitus who has not been compliant with any medication presented to the ER with slurred speech and ataxia found to have left brainstem pontine level ischemic infarct. Teleneurology was consulted and did not receive tPA as patient was out of window. Plan to admit the patient and start aspirin and SBP goal 1 60-1 80. Plan to admit to telemetry and will obtain a stroke workup including MRI, echocardiogram and telemetry monitoring. I reviewed above note and agree with findings and plans. I have also personally examined the patient with medicine team and went over assessment and plan with medical team including physician/internist and resident physician.
--- NOTE | 2024-06-29 18:53 | PC.NURSE ---
Pt voided and given perineal care at this time with warm bath cloths.
[2024-06-29] MEDS: INSULIN LISPRO (AdmeLOG) 1 UNIT/0.01 ML UNIT SC (21:01)
[2024-06-30] VITALS (10 sets, daily range): BP systolic 114–167; BP diastolic 74–97; PULSE 78–100; RESP 12–94; TEMP 36.1–36.6; O2SAT 94–99; BMI 27.3
--- NOTE | 2024-06-30 | XR_ITS ---
Examinations: MRI Brain without intravenous contrast. MRA brain without intravenous contrast. MRA carotids without intravenous contrast 3-D vascular reconstructions Date and time of exam: June 30, 2024 1005 hrs. Indications: Stroke alert June 29, 2024, onset focal neurologic deficit, right-sided facial droop slurred speech ataxia beginning yesterday Technique: Multiple axial and sagittal images of the brain have been obtained MRA brain carotid images without contrast obtained, including 3-D postprocessing, vascular maximum intensity projection images Findings: [place] is not enlarged. The optic chiasm and infundibular stalk are not remarkable. Prepontine and interpeduncular cisterns are not enlarged. No localized enlargement of the medulla or kirsten. Fourth ventricle and cerebellar tonsils normal in position. Subacute hemorrhage is not seen. Fourth ventricle is midline. Mass in the cerebellopontine angle region is not evident. 7th and 8th nerve complexes exhibits symmetry. Globes are symmetrical with no retro-orbital mass. Increased white matter signal mild Diffusion-weighted images demonstrate 18 mm focus restricted diffusion left brainstem pontine level Mass-effect upon the ventricular system is not identified. MRA carotid images no carotid stenoses. MRA brain images 90% stenosis P2 segment left posterior cerebral artery Impression: 18 mm acute infarct left brainstem pontine level
[2024-06-30 05:58] LABS: Basophils # (Auto) 0.1 Thou/mm3 (0.0-0.2); Basophils % (Auto) 1 % (0-2.5); Eosinophils # (Auto) 0.3 Thou/mm3 (0.0-0.5); Eosinophils % (Auto) 3 % (0-10); Hematocrit 38.9 % (36.0-46.0); Hemoglobin 12.7 g/dL (12.0-16.0); Immature Granulocytes % (Auto) 0 % (0-0); Immature Granulocytes Auto 0.04 Thou/mm3 (0.00-0.00); Lymphocytes % (Auto) 31 % (10-50); Mean Corpuscular HGB Conc 32.6 g/dl (31.0-37.0); Mean Corpuscular Hemoglobin 29.9 pg (25.0-35.0); Mean Corpuscular Volume 92 fL (80-100); Monocytes # (Auto) 0.8 Thou/mm3 (0.0-0.8); Monocytes % (Auto) 9 % (0-12); Neutrophils # (Auto) 5.5 Thou/mm3 (1.8-7.7); Neutrophils % (Auto) 57 % (37-80); Nucleated Red Blood Cell % 0 /100 WBC (0); Platelet Count 256 Thou/mm3 (140-440); RDW Standard Deviation 44.9 fL (36.4-46.3); Red Blood Count 4.25 Miln/mm3 (4.00-5.20); White Blood Count 9.7 Thou/mm3 (3.6-11.0)
[2024-06-30 06:52] LABS: Glucose Estimated Average 258 mg/dL (80-131); Hemoglobin A1C 10.6 % Hgb (4.8-6.0)
[2024-06-30 07:14] LABS: Alanine Aminotransferase 12 U/L (10-49); Albumin, Serum 4.2 gm/dL (3.4-4.8); Albumin/Globulin Ratio 1.8 (1.2-2.2); Alkaline Phosphatase 98 U/L (46-116); Anion Gap 10 (7-16); Aspartate Amino Transferase 14 U/L (0-34); BUN/Creatinine Ratio 27 Ratio (12-20); Bilirubin,Total 0.5 mg/dL (0.3-1.2); Blood Urea Nitrogen 16 mg/dL (9-23); Calcium 9.1 mg/dL (8.3-10.6); Calcium (Corrected) 9.1 mg/dL (8.5-10.1); Carbon Dioxide 25.6 mMol/L (20.0-31.0); Cardiac Risk Estimate 5.1 RATIO (3.7-5.6); Chloride 105 mMol/L (98-107); Cholesterol 263 mg/dL (132-200); Creatinine (Component) 0.6 mg/dL (0.6-1.3); Estimated Creatinine Clearance 90.1 mL/min (>60); Globulin 2.3 gm/dL (2.3-3.5); Glucose 193 mg/dL (74-106); HDL Cholesterol 52 mg/dL (40-60); LDL Cholesterol,Calculated 176 mg/dL (0-130); Magnesium 2.2 mg/dL (1.6-2.6); Osmolality,Calculated 287 (275-295); Phosphorous 4.1 mg/dL (2.4-5.1); Potassium 3.1 mMol/L (3.4-5.1); Sodium 141 mMol/L (136-145); Total Protein 6.5 gm/dL (5.7-8.2); Triglycerides 173 mg/dL (30-150); eGFR > 60 See Note
[2024-06-30 07:32] LABS: Thyroid Stimulating Hormone 1.53 uIU/mL (0.55-4.78)
--- NOTE | 2024-06-30 08:32 | PCS.ST ---
Swallow Eval completed. See report for details. Mild ataxic speech. Recommend regular diet consistencies. ST will follow up
[2024-06-30] MEDS: ASPIRIN EC 81 MG TABEC PO (09:11)
[2024-06-30] MEDS: PANTOPRAZOLE INJ 40 MG VIAL IVP (09:12)
[2024-06-30] MEDS: POTASSIUM CHL 10 mEq IVPB 10 MEQ/100 ML BAG 50 MEQ IV (09:12)
[2024-06-30] MEDS: INSULIN GLARGINE (Lantus) 5 UNIT/0.05 ML (PER 5 UNITS) 10 UNIT SC (09:13)
--- NOTE | 2024-06-30 10:57 | PC.SS ---
Follow up note: MRI and ECHO pending.
[2024-06-30] MEDS: INSULIN LISPRO (AdmeLOG) 1 UNIT/0.01 ML UNIT SC ×3 (11:46→20:36)
--- NOTE | 2024-06-30 12:57 | PC.SS ---
SS met with patient regarding d/c plan. Pt is alert/oriented. Pt was admitted for Stroke Workup. Pt confirmed demographic and contact information is correct on facesheet. Pt resides with . Pt ambulates independently without assistance or DME. Pt is ok with all ADLs. Patient?s pharmacy of choice is [facility]. Pt named her daughter, Sofiya Beltran medical decision maker if unable. Patient?s choice is to return home upon d/c. Pt does not have an advance directive, SS offered, and pt declined. Pt states she is diabetic but does not have glucometer/test strips (DietitianDavid is aware). Pt states she follow up with PCP about 2 years ago. Family will provide transportation D/C plan: Return home Next of Kin: Sofiya Beltran, daughter, phone# [phone] PCP: Dr. Davis Address: Correct on facesheet
--- NOTE | 2024-06-30 13:08 | ESPR_ITS ---
<Statement entered by Rosaura Og DO - 06/30/24 15:00> Senior attestation: Patient was examined and case was reviewed with team including attending physician. Note reviewed, I agree with most of its contents and agree with the patient's care. MRI revealed 18 mm acute infarct left brain stem pontine level followed up with neurologist Dr. Dunham who advised starting plavix. Pending echo and physical therapy. Rosaura Og DO PGY-3 Documentation for date of: 06/30/24 Subjective Subjective Interval history: Patient seen at bedside. Patient denies any headaches, reports no new deficits or symptoms MRI positive for 18 mm acute infarct left brainstem pontine level. Case discussed with neurology, patient started on Plavix. Pending echo read and physical therapy evaluation. Patient was seen by speech therapy, started on carb consistent low cardiac diet. Will continue to monitor patient Exam Vital Signs Temp Pulse Resp BP Pulse Ox O2 Del Method 97.9 F 98 20 167/90 H 96 Room Air 06/30/24 12:00 06/30/24 12:00 06/30/24 12:00 06/30/24 12:00 06/30/24 12:00 06/30/24 12:00 Narrative Exam Physical Exam General: Awake and in no acute distress. Conversational and non-toxic appearing. HEENT: Normocephalic, atraumatic, mucous membranes moist. Heart: Regular rate and rhythm, no murmurs. Lungs: Clear to auscultation with no wheezing or crackles. Abdomen: Soft, obese, nondistended, nontender, positive bowel sounds. ?No guarding or rebound tenderness. Neurologic: Alert and oriented x3, right-sided facial droop, and patient able to move all 4 extremities. No slurring of speech noted. Extremities: No edema. Skin: No rash or ecchymoses. Objective Labs 07/02/24 08:08 07/02/24 08:08 Labs: Laboratory Results - last 24 hr 06/29/24 06/29/24 06/30/24 16:29 17:10 04:49 WBC 8.7 9.7 RBC 4.97 4.25 Hgb 14.8 12.7 D Hct 44.4 38.9 MCV 89 92 MCH 29.8 29.9 MCHC 33.3 32.6 RDW Std Deviation 43.2 44.9 Plt Count 257 256 Neut % (Auto) 64 57 Lymph % (Auto) 25 31 Starr % (Auto) 8 9 Eos % (Auto) 3 3 Baso % (Auto) 1 1 Neut # (Auto) 5.6 5.5 Lymph # (Auto) 2.1 3.0 Starr # (Auto) 0.7 0.8 Eos # (Auto) 0.2 0.3 Baso # (Auto) 0.1 0.1 Immature Gran # (Auto) 0.03 H 0.04 H Absolute Nucleated RBC 0.00 0.00 Immature Gran % 0 0 Nucleated RBC % 0 0 PT 10.6 INR 1.0 APTT 25.2 Sodium 135 L 141 Potassium 3.7 3.1 L D Chloride 100 105 Carbon Dioxide 26.0 25.6 Anion Gap 9 10 BUN 16 16 Creatinine 0.8 0.6 Estim Creat Clear Calc 108.0 90.1 eGFR > 60 > 60 BUN/Creatinine Ratio 20 27 H Glucose 440 H* [address] Glu mg/dL 258 H Hemoglobin A1c 10.6 H Calculated Osmolality 290 287 Calcium 9.7 9.1 Corrected Calcium 9.7 9.1 Phosphorus 4.1 Magnesium 2.2 2.2 Total Bilirubin 0.7 0.5 AST 18 14 ALT 15 12 Alkaline Phosphatase 137 H 98 D Troponin I < 0.020 Total Protein 8.0 6.5 Albumin 5.1 H 4.2 D Globulin 2.9 2.3 Albumin/Globulin Ratio 1.8 1.8 Triglycerides 173 H Cholesterol 263 H LDL Cholesterol, Calc 176 H HDL Cholesterol 52 Cholesterol/HDL Ratio 5.1 TSH 1.53 Ur Collection Type Clean Catch Urine Color Lt-Yellow Urine Clarity Clear Urine pH 7.0 Ur Specific [place] 1.041 H Urine Protein Trace Urine Glucose (UA) 4+ A Urine Ketones Negative Urine Blood Negative Urine Nitrite Positive Urine Bilirubin Negative Urine Urobilinogen (Auto) Negative Ur Leukocyte Esterase Positive Urine RBC 24 H Urine WBC 49 H Ur Squamous Epith Cells 5 Urine Bacteria Rare Urine Opiates Screen Negative Urine Fentanyl Screen Negative Ur Barbiturates Screen Negative U Amphetamin/Meth Scrn Negative U Benzodiazepines Scrn Negative U Cocaine Metab Screen Negative U Marijuana (THC) Screen Negative Quality Measures Quality Measures none Advance care planning discussed with:: patient and child Assessment & Plan Assessment Current Active Medications: Generic Name Dose Route Start Last Admin Trade Name Freq PRN Reason Stop Dose Admin Acetaminophen 650 mg 06/29/24 18:25 Acetaminophen Supp 650 Mg Supp VA 07/29/24 18:24 Q6HR PRN [id number] Aspirin 81 mg 06/30/24 09:00 06/30/24 09:11 Aspirin Ec 81 Mg Tabec PO 07/30/24 08:59 81 mg QDAY DOMINGO Administration Atorvastatin Calcium 80 mg 06/30/24 21:00 Atorvastatin Calcium 20 Mg Tablet PO 07/30/24 20:59 HS DOMINGO Dextrose 25 ml 06/29/24 18:30 Dextrose 50%-Water Inj 50 Ml Syringe IV 07/29/24 18:29 Q15MIN PRN BG 50-70 responsive npo pt Dextrose 50 ml 06/29/24 18:30 Dextrose 50%-Water Inj 50 Ml Syringe IV 07/29/24 18:29 Q15MIN PRN BG <50 OR BG <70 & pt unresponsive Glucagon 1 mg 06/29/24 18:30 Glucagon Inj 1 Mg Vial IM Q15MIN PRN BG <70, and no IV access Insulin Glargine 10 unit 06/30/24 09:00 06/30/24 09:13 Insulin Glargine (Lantus) 5 Unit/0.05 Ml (Per 5 Units) SC 07/30/24 08:59 10 unit QDAY DOMINGO Administration Insulin Human Lispro 0 unit 06/30/24 12:00 06/30/24 11:46 Insulin Lispro (Admelog) 1 Unit/0.01 Ml Unit SC 07/30/24 11:59 12 unit Q6HR DOMINGO Administration Protocol Ondansetron HCl 4 mg 06/29/24 18:25 Ondansetron Inj 2 Mg/Ml Inj 2 Ml IV 07/29/24 18:24 Q6H PRN NAUSEA OR VOMITING Protocol Pantoprazole Sodium 40 mg 06/30/24 09:00 06/30/24 09:12 Pantoprazole Inj 40 Mg Vial IVP 07/30/24 08:59 40 mg QDAY DOMINGO Administration Plan Assessment and plan: Summary: Ms. Beltran is a 68-year-old female with past medical history of hypertension and diabetes mellitus, not on any medications who presented to [facility] with a chief complaint of Facial droop, slurring of speech and ataxia. Patient admitted for stroke workup. 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 -Patient does have history of diabetes mellitus and hypertension, poorly managed outpatient. -CT scan of head and ED shows Age indeterminate small infarct left brainstem pontine level head and neck CTA shows Suspicious for 60% stenosis right posterior cerebral artery junction P1 P2 segments EKG shows sinus tachycardia, QTc 482 -Patient was seen by teleneuro in ED, NIHSS 4, right-sided facial droop noted, teleneuro recommends aspirin, MRI, A1c, blood pressure recommendations 180-200 over the next 24 hours, PT/SWAGE TENDER eval, echo and neurology follow-up. Patient was given aspirin 325 as needed in ED, patient failed swallow eval in ED, patient was given labetalol 20 mg by teleneuro for elevated blood pressure and patient was given Zofran -MRI positive for 18 mm acute infarct left brainstem pontine level, 90% stenosis P2 segment left posterior cerebral artery post speech therapy evaluation, patient started on, carb consistent cardiac diet -Hemoglobin A1c 10.6, triglycerides 173, cholesterol 263, LDL 176, TSH normal Plan: -Continue aspirin 81 mg and Plavix 75 mg daily -Started on atorvastatin 80 mg at bedtime -Follow-up echo with bubble study -Neurochecks every 4 hours -Head of bed elevated more than 30 degrees -Aspiration precautions -Allow permissive hypertension, keep blood pressure less than 200 for 24 hours -Consulted neurology, appreciate recommendations -Referral to speech therapy -Referral to physical therapy #Diabetes mellitus -Patient does have history of diabetes, has poor outpatient follow-up does not take any medications at home -Hemoglobin A1c 10.6 Plan: -Lispro sliding scale insulin -Fingerstick blood glucose checks -Started on Lantus 10 daily -Hypoglycemia protocol in place -Inpatient blood glucose target range 140-180 # Asymptomatic bacteriuria -Patient denies any dysuria or other symptoms, was given ceftriaxone in ED -UA was significant for urine specific gravity 1.041, urine glucose 4+, urine nitrate positive, urine leukocyte esterase positive, urine RBC 24, urine WBC 49, urine bacteria rare Plan: -Urine culture showed GNR, patient denies any symptoms # Hypertension # Hypercholesterolemia # Dyslipidemia # Hypertriglyceridemia -Started on atorvastatin 80 mg at bedtime -Will allow permissive hypertension for 24 hours # Electrolyte imbalance # Hypokalemia -Will correct and monitor electrolytes as needed DVT prophylaxis: SCDs GI prophylaxis: PO Protonix Diet: Carb consistent low, cardiac Lines: Peripheral IV Code status: Full code Physical Therapy: Ordered, pending Case discussed with Attending Dr. Salazar and Dr. Og PGY3. Terence Navarro PGY1 Attending Provider Attestation/Addendum 68-year-old female with history of hypertension, hyperlipidemia and type 2 diabetes mellitus who has not been compliant with any medication presented to the ER with slurred speech and ataxia found to have left brainstem pontine level ischemic infarct. Teleneurology was consulted and did not receive tPA as patient was out of window. Plan to admit the patient and start aspirin and SBP goal 1 60-1 80. MRI confirmed acute infarct left brainstem at the pontine level. Plan to continue PT/OT, aspirin, Plavix, Lipitor. Appreciate neurology input. I reviewed above note and agree with findings and plans. I have also personally examined the patient with medicine team and went over assessment and plan with medical team including recruitment intern and resident physician.
[2024-06-30] MEDS: CLOPIDOGREL BISULFATE 75 MG TABLET PO (13:41)
[2024-06-30] MEDS: POTASSIUM CHLORIDE 20 mEq TABCR 40 MEQ PO (13:41)
--- NOTE | 2024-06-30 16:02 | PC.DIETICIAN ---
Nutrition Education (A1C=10.6): Patient was educated on dietary management of diabetes; written material and a FreeStyle Cristina 3 System (CGM) were provided. *Consider prescribing a FreeStyle Cristina 3 sensor upon discharge.
--- NOTE | 2024-06-30 16:14 | PC.SS ---
Pt has presumptive medical health insurance which does not cover SNF (verified by Martha at [facility] who explained has to be full scope Medical) or Home Health. Pt is aware.
[2024-06-30] MEDS: ATORVASTATIN CALCIUM 20 MG TABLET 80 MG PO (20:36)
--- NOTE | 2024-06-30 23:36 | VVPN_ITS ---
Telemedicine visit statement This visit was conducted with the use of phone was obtained on 06/30/24. Documentation for date of: 06/30/24 Subjective Subjective Interval history: Patient is in [facility]. Presented with right hemiparesis affecting the face and upper extremity more than the right lower extremity. Denies any headache or dizziness. No vision symptoms reported. Virtual exam Vital Signs Temp Pulse Resp BP Pulse Ox O2 Del Method 96.9 F 89 16 161/97 H 97 Room Air 06/30/24 19:55 06/30/24 21:49 06/30/24 21:49 06/30/24 19:55 06/30/24 19:55 06/30/24 19:55 Objective Labs 07/01/24 05:45 07/01/24 05:45 Labs: Laboratory Results - last 24 hr 06/30/24 04:49 WBC 9.7 RBC 4.25 Hgb 12.7 D Hct 38.9 MCV 92 MCH 29.9 MCHC 32.6 RDW Std Deviation 44.9 Plt Count 256 Neut % (Auto) 57 Lymph % (Auto) 31 [place] % (Auto) 9 Eos % (Auto) 3 Baso % (Auto) 1 Neut # (Auto) 5.5 Lymph # (Auto) 3.0 [place] # (Auto) 0.8 Eos # (Auto) 0.3 Baso # (Auto) 0.1 Immature Gran # (Auto) 0.04 H Absolute Nucleated RBC 0.00 Immature Gran % 0 Nucleated RBC % 0 Sodium 141 Potassium 3.1 L D Chloride 105 Carbon Dioxide 25.6 Anion Gap 10 BUN 16 Creatinine 0.6 Estim Creat Clear Calc 90.1 eGFR > 60 BUN/Creatinine Ratio 27 H Glucose [address] Glu mg/dL 258 H Hemoglobin A1c 10.6 H Calculated Osmolality 287 Calcium 9.1 Corrected Calcium 9.1 Phosphorus 4.1 Magnesium 2.2 Total Bilirubin 0.5 AST 14 ALT 12 Alkaline Phosphatase 98 D Total Protein 6.5 Albumin 4.2 D Globulin 2.3 Albumin/Globulin Ratio 1.8 Triglycerides 173 H Cholesterol 263 H LDL Cholesterol, Calc 176 H HDL Cholesterol 52 Cholesterol/HDL Ratio 5.1 TSH 1.53 Assessment & Plan Assessment 1) Cerebrovascular accident: Status: Acute Assessment and plan: MRI brain showed left pontine infarct Presenting as right hemiparesis affecting face and upper extremity more than the lower extremity. Improving significantly from admission. Continue with aspirin 81 mg and Plavix 75 mg and high intensity statin, aggressive vascular risk factor reduction for prophylaxis as she has MARKETING TEAM LEAD stenosis. Continue with the physical therapy. Follow-up with echocardiogram. (2) UTI (urinary tract infection): Status: Acute Assessment and plan: Continue with IV antibiotics for E. coli (3) Type 2 diabetes mellitus: Status: Acute Assessment and plan: A1c: 10.4. On insulin No prior history noted. Needs aggressive blood sugar management to prevent complications
[2024-07-01] VITALS (9 sets, daily range): BP systolic 146–167; BP diastolic 86–95; PULSE 72–100; RESP 15–98; TEMP 36.2–36.6; O2SAT 96–98
[2024-07-01 06:42] LABS: Basophils % (Auto) 0 % (0-2.5); Eosinophils # (Auto) 0.3 Thou/mm3 (0.0-0.5); Eosinophils % (Auto) 3 % (0-10); Hematocrit 39.6 % (36.0-46.0); Hemoglobin 12.7 g/dL (12.0-16.0); Immature Granulocytes % (Auto) 0 % (0-0); Immature Granulocytes Auto 0.03 Thou/mm3 (0.00-0.00); Lymphocytes # (Auto) 2.3 Thou/mm3 (1.0-4.8); Lymphocytes % (Auto) 25 % (10-50); Mean Corpuscular HGB Conc 32.1 g/dl (31.0-37.0); Mean Corpuscular Hemoglobin 29.7 pg (25.0-35.0); Mean Corpuscular Volume 93 fL (80-100); Monocytes # (Auto) 0.9 Thou/mm3 (0.0-0.8); Monocytes % (Auto) 9 % (0-12); Neutrophils # (Auto) 5.8 Thou/mm3 (1.8-7.7); Neutrophils % (Auto) 62 % (37-80); Nucleated Red Blood Cell % 0 /100 WBC (0); Platelet Count 249 Thou/mm3 (140-440); RDW Standard Deviation 44.9 fL (36.4-46.3); Red Blood Count 4.28 Miln/mm3 (4.00-5.20); White Blood Count 9.4 Thou/mm3 (3.6-11.0)
[2024-07-01 06:50] LABS: Alanine Aminotransferase 12 U/L (10-49); Albumin, Serum 4.1 gm/dL (3.4-4.8); Albumin/Globulin Ratio 1.8 (1.2-2.2); Alkaline Phosphatase 94 U/L (46-116); Anion Gap 7 (7-16); Aspartate Amino Transferase 16 U/L (0-34); BUN/Creatinine Ratio 30 Ratio (12-20); Bilirubin,Total 0.8 mg/dL (0.3-1.2); Blood Urea Nitrogen 21 mg/dL (9-23); Carbon Dioxide 26.9 mMol/L (20.0-31.0); Chloride 105 mMol/L (98-107); Creatinine (Component) 0.7 mg/dL (0.6-1.3); Estimated Creatinine Clearance 77.2 mL/min (>60); Globulin 2.3 gm/dL (2.3-3.5); Glucose 219 mg/dL (74-106); Magnesium 2.1 mg/dL (1.6-2.6); Osmolality,Calculated 287 (275-295); Sodium 139 mMol/L (136-145); Total Protein 6.4 gm/dL (5.7-8.2); eGFR > 60 See Note
[2024-07-01] MEDS: INSULIN LISPRO (AdmeLOG) 1 UNIT/0.01 ML UNIT SC ×2 (07:45→17:44)
[2024-07-01] MEDS: INSULIN GLARGINE (Lantus) 5 UNIT/0.05 ML (PER 5 UNITS) 20 UNIT SC (09:58)
[2024-07-01] MEDS: ASPIRIN EC 81 MG TABEC PO (09:59)
[2024-07-01] MEDS: PANTOPRAZOLE 40 MG TABLET PO (09:59)
[2024-07-01] MEDS: CLOPIDOGREL BISULFATE 75 MG TABLET PO (10:00)
--- NOTE | 2024-07-01 11:04 | ESPR_ITS ---
<Statement entered by Rosaura Og DO - 07/01/24 20:45> Senior attestation: Patient was examined and case was reviewed with team including attending physician. Note reviewed, I agree with most of its contents and agree with the patient's care. Pending echo and neurology recommendations, physical therapy advises home health PT however may be difficulties with insurance authorization. Rosaura Og DO PGY-3 Documentation for date of: 07/01/24 Subjective Subjective Interval history: Patient seen at bedside. Patient denies any headaches, reports some residual weakness in right upper extremity, no progression. MRI was positive for 18 mm acute infarct left brainstem pontine level. Patient is on both aspirin and Plavix. Physical therapy recommends discharge home with home health. Patient is pending ECHO read and neurology recommendations. Consider starting patient on NORA/ARB inhibitor for blood pressure control in a.m. Will continue to monitor patient Exam Vital Signs Temp Pulse Resp BP Pulse Ox O2 Del Method 97.8 F 94 15 155/95 H 98 Room Air 07/01/24 08:00 07/01/24 08:00 07/01/24 08:00 07/01/24 08:00 07/01/24 08:00 07/01/24 08:00 Narrative Exam Physical Exam General: Awake and in no acute distress. Conversational and non-toxic appearing. HEENT: Normocephalic, atraumatic, mucous membranes moist. Heart: Regular rate and rhythm, no murmurs. Lungs: Clear to auscultation with no wheezing or crackles. Abdomen: Soft, obese, nondistended, nontender, positive bowel sounds. ?No guarding or rebound tenderness. Neurologic: Alert and oriented x3, right-sided facial droop improving, and patient able to move all 4 extremities. No slurring of speech noted. Extremities: No edema. Skin: No rash or ecchymoses. Objective Labs 07/02/24 08:08 07/02/24 08:08 Labs: Laboratory Results - last 24 hr 07/01/24 05:45 WBC 9.4 RBC 4.28 Hgb 12.7 Hct 39.6 MCV 93 MCH 29.7 MCHC 32.1 RDW Std Deviation 44.9 Plt Count 249 Neut % (Auto) 62 Lymph % (Auto) 25 [place] % (Auto) 9 Eos % (Auto) 3 Baso % (Auto) 0 Neut # (Auto) 5.8 Lymph # (Auto) 2.3 [place] # (Auto) 0.9 H Eos # (Auto) 0.3 Baso # (Auto) 0.0 Immature Gran # (Auto) 0.03 H Absolute Nucleated RBC 0.00 Immature Gran % 0 Nucleated RBC % 0 Sodium 139 Potassium 4.0 D Chloride 105 Carbon Dioxide 26.9 Anion Gap 7 BUN 21 Creatinine 0.7 Estim Creat Clear Calc 77.2 eGFR > 60 BUN/Creatinine Ratio 30 H Glucose 219 H Calculated Osmolality 287 Calcium 9.0 Corrected Calcium 9.0 Magnesium 2.1 Total Bilirubin 0.8 AST 16 ALT 12 Alkaline Phosphatase 94 Total Protein 6.4 Albumin 4.1 Globulin 2.3 Albumin/Globulin Ratio 1.8 Quality Measures Quality Measures none Advance care planning discussed with:: patient Assessment & Plan Assessment Current Active Medications: Generic Name Dose Route Start Last Admin Trade Name Freq PRN Reason Stop Dose Admin Acetaminophen 650 mg 07/01/24 10:44 Acetaminophen Supp 650 Mg Supp DC 07/29/24 18:24 Q6HR PRN FEVER>101.5 Aspirin 81 mg 06/30/24 09:00 07/01/24 09:59 Aspirin Ec 81 Mg Tabec PO 07/30/24 08:59 81 mg QDAY DOMINGO Administration Atorvastatin Calcium 80 mg 06/30/24 21:00 06/30/24 20:36 Atorvastatin Calcium 20 Mg Tablet PO 07/30/24 20:59 80 mg HS DOMINGO Administration Clopidogrel Bisulfate 75 mg 06/30/24 13:30 07/01/24 10:00 Clopidogrel Bisulfate 75 Mg Tablet PO 07/30/24 13:29 75 mg QDAY DOMINGO Administration Dextrose 25 ml 06/29/24 18:30 Dextrose 50%-Water Inj 50 Ml Syringe IV 07/29/24 18:29 Q15MIN PRN BG 50-70 responsive npo pt Dextrose 50 ml 06/29/24 18:30 Dextrose 50%-Water Inj 50 Ml Syringe IV 07/29/24 18:29 Q15MIN PRN BG <50 OR BG <70 & pt unresponsive Glucagon 1 mg 06/29/24 18:30 Glucagon Inj 1 Mg Vial IM Q15MIN PRN BG <70, and no IV access Insulin Glargine 20 unit 07/01/24 09:00 07/01/24 09:58 Insulin Glargine (Lantus) 5 Unit/0.05 Ml (Per 5 Units) SC 07/31/24 08:59 20 unit QDAY [facility] Administration Insulin Human Lispro 4 unit 07/01/24 11:30 Insulin Lispro (Admelog) 1 Unit/0.01 Ml Unit SC 07/31/24 11:29 [facility] Insulin Human Lispro 0 unit 07/01/24 11:30 Insulin Lispro (Admelog) 1 Unit/0.01 Ml Unit SC 07/31/24 11:29 [facility] Protocol Ondansetron HCl 4 mg 06/29/24 18:25 Ondansetron Inj 2 Mg/Ml Inj 2 Ml IV 07/29/24 18:24 Q6H PRN NAUSEA OR VOMITING Protocol Pantoprazole Sodium 40 mg 07/01/24 09:00 07/01/24 09:59 Pantoprazole 40 Mg Tablet PO 07/31/24 08:59 40 mg QDAY DOMINGO Administration Plan Assessment and plan: Summary: Ms. Beltran is a 68-year-old female with past medical history of hypertension and diabetes mellitus, not on any medications who presented to [facility] with a chief complaint of Facial droop, slurring of speech and ataxia. Patient admitted for stroke workup. # 18 mm acute infarct left brainstem pontine level # CVA # Facial droop # Ataxia -Patient does report that her symptoms did start when she woke up, progressed throughout the day, reported right-sided facial droop, difficulty ambulating and slurring of speech, PROJECT LEAD unknown, patient poor candidate for tPA. -Patient does have history of diabetes mellitus and hypertension, poorly managed outpatient. -CT scan of head and ED shows Age indeterminate small infarct left brainstem pontine level head and neck CTA shows Suspicious for 60% stenosis right posterior cerebral artery junction P1 P2 segments EKG shows sinus tachycardia, QTc 482 -Patient was seen by teleneuro in ED, NIHSS 4, right-sided facial droop noted, teleneuro recommends aspirin, MRI, A1c, blood pressure recommendations 180-200 over the next 24 hours, PT/ELECTRICAL PROSPECTING OBSERVER eval, echo and neurology follow-up. Patient was given aspirin 325 as needed in ED, patient failed swallow eval in ED, patient was given labetalol 20 mg by teleneuro for elevated blood pressure and patient was given Zofran -MRI positive for 18 mm acute infarct left brainstem pontine level, 90% stenosis P2 segment left posterior cerebral artery post speech therapy evaluation, patient started on, carb consistent cardiac diet -Hemoglobin A1c 10.6, triglycerides 173, cholesterol 263, LDL 176, TSH normal. Plan: -Continue aspirin 81 mg and Plavix 75 mg daily -Started on atorvastatin 80 mg at bedtime -Follow-up echo with bubble study -Neurochecks every 4 hours -Head of bed elevated more than 30 degrees -Aspiration precautions -Allow permissive hypertension, keep blood pressure less than 200 for 24 hours -Consulted neurology, appreciate recommendations -Referral to speech therapy, recommend regular diet -Referral to physical therapy, recommends discharge home with home health #Diabetes mellitus -Patient does have history of diabetes, has poor outpatient follow-up does not take any medications at home -Hemoglobin A1c 10.6 Plan: -Lispro sliding scale insulin -Lispro 4 units AC -Fingerstick blood glucose checks -Started on Lantus 20 daily -Hypoglycemia protocol in place -Inpatient blood glucose target range 140-180 # Asymptomatic bacteriuria -Patient denies any dysuria or other symptoms, was given ceftriaxone in ED -UA was significant for urine specific gravity 1.041, urine glucose 4+, urine nitrate positive, urine leukocyte esterase positive, urine RBC 24, urine WBC 49, urine bacteria rare Plan: -Urine culture showed GNR, patient denies any symptoms # Hypertension # Hypercholesterolemia # Dyslipidemia # Hypertriglyceridemia -Started on atorvastatin 80 mg at bedtime -Will allow permissive hypertension for 24 hours # Electrolyte imbalance # Hypokalemia -Will correct and monitor electrolytes as needed DVT prophylaxis: SCDs GI prophylaxis: PO Protonix Diet: Carb consistent low, cardiac Lines: Peripheral IV Code status: Full code Physical Therapy: Ordered, pending Case discussed with Attending Dr. Salazar and Dr. Og PGY3. Terence Navarro PGY1 Attending Provider Attestation/Addendum 68-year-old female with history of hypertension, hyperlipidemia and type 2 diabetes mellitus who has not been compliant with any medication presented to the ER with slurred speech and ataxia found to have left brainstem pontine level ischemic infarct. Teleneurology was consulted and did not receive tPA as patient was out of window. Plan to admit the patient and start aspirin and SBP goal 1 60-1 80. MRI confirmed acute infarct left brainstem at the pontine level. Plan to continue PT/OT, aspirin, Plavix, Lipitor. Appreciate neurology input. Plan was to discharge the patient however patient is unable to be placed for acute rehab will order home health for PT. Will continue to monitor patient until social and human services assistant obtain the requested services that patient needs. I reviewed above note and agree with findings and plans. I have also personally examined the patient with medicine team and went over assessment and plan with medical team including internal revenue service agent and resident physician.
[2024-07-01] MEDS: INSULIN LISPRO (AdmeLOG) 1 UNIT/0.01 ML UNIT 4 UNIT SC ×2 (11:51→17:44)
[2024-07-01] MEDS: ATORVASTATIN CALCIUM 20 MG TABLET 80 MG PO (21:01)
--- NOTE | 2024-07-01 22:39 | PD.NEUROPROG ---
Documentation for date of: 07/01/24 Subjective Subjective Interval history: Patient was seen in telemetry today at the bedside. Continues to have right upper motor neuron facial weakness and right upper extremity more than right lower extremity weakness, but significantly improved since admission. She is able to walk with a walker. She is tolerating oral diet well. No headache dizziness reported. Exam - Neurology Vital Signs Temp Pulse Resp BP Pulse Ox O2 Del Method 97.4 F 100 18 167/94 H 98 Room Air 07/01/24 16:00 07/01/24 19:40 07/01/24 19:40 07/01/24 16:00 07/01/24 16:00 07/01/24 16:00 Narrative Exam GENERAL APPEARANCE: Well hydrated, well-nourished in no acute distress. HEENT: Normocephalic, atraumatic, extraocular movements intact. Pupils: Equal reacting to light and accommodation NECK: Supple, no JVD or bruits. CARDIOVASULAR: Heart: S1, S2 heard, regular without S3-S4 or murmur no rubs or gallops. LUNGS/CHEST: Clear to auscultation bilaterally. No rails, rhonchi, or wheezing. Normal inspection. ABDOMEN: Soft, nontender, with normal bowel sounds. No pulsatile masses. No rebound, rigidity, or guarding. Normal inspection and palpation. EXTREMITIES: Normal inspection and palpation. No edema, clubbing or cyanosis. SKIN: Warm and dry without rashes. Normal inspection. MUSCULOSKELETAL: No cervical, thoracic, lumbar or midline bony tenderness. Normal inspection. NEURO: Alert, awake and oriented x3. Cranial nerves: II through XII grossly intact with exception of right facial weakness of upper motor neuron type.. Speech and language: Normal with no dysarthria or dysphasia. Motor system: Tone and bulk: Normal: Strength: Moves all 4 extremities; pronator drift noted in the right upper extremity, right upper and lower extremities have a strength of 4+/5, rest of the extremities: 5/5 throughout. deep tendon reflexes: 2+ bilaterally symmetrical. Plantar reflex: Downgoing bilaterally. Sensory system: Intact to all modalities of sensation bilaterally. Coordination: Intact to [id number] and [id number] test bilaterally. But has mild dysmetria in the right upper extremity. No intention tremors noted. Gait: Able to walk with a walker, no signs of meningeal irritation noted. PSYCHIATRIC: Normal mood and affect. Objective Labs 07/01/24 05:45 07/01/24 05:45 Labs: Laboratory Results - last 24 hr 07/01/24 05:45 WBC 9.4 RBC 4.28 Hgb 12.7 Hct 39.6 MCV 93 MCH 29.7 MCHC 32.1 RDW Std Deviation 44.9 Plt Count 249 Neut % (Auto) 62 Lymph % (Auto) 25 [place] % (Auto) 9 Eos % (Auto) 3 Baso % (Auto) 0 Neut # (Auto) 5.8 Lymph # (Auto) 2.3 [place] # (Auto) 0.9 H Eos # (Auto) 0.3 Baso # (Auto) 0.0 Immature Gran # (Auto) 0.03 H Absolute Nucleated RBC 0.00 Immature Gran % 0 Nucleated RBC % 0 Sodium 139 Potassium 4.0 D Chloride 105 Carbon Dioxide 26.9 Anion Gap 7 BUN 21 Creatinine 0.7 Estim Creat Clear Calc 77.2 eGFR > 60 BUN/Creatinine Ratio 30 H Glucose 219 H Calculated Osmolality 287 Calcium 9.0 Corrected Calcium 9.0 Magnesium 2.1 Total Bilirubin 0.8 AST 16 ALT 12 Alkaline Phosphatase 94 Total Protein 6.4 Albumin 4.1 Globulin 2.3 Albumin/Globulin Ratio 1.8 Assessment & Plan Assessment and plan (1) Cerebrovascular accident: Status: Acute Assessment and plan: MRI brain showed left pontine infarct Presenting as right hemiparesis affecting face and upper extremity more than the lower extremity. Improving significantly from admission. Continue with aspirin 81 mg and Plavix 75 mg and high intensity statin, aggressive vascular risk factor reduction for prophylaxis as she has BRANCH CONTROLLER stenosis. Continue with the physical therapy. (2) UTI (urinary tract infection): Status: Acute Assessment and plan: Continue with IV antibiotics for E. coli (3) Type 2 diabetes mellitus: Status: Acute Assessment and plan: A1c: 10.4. On insulin No prior history noted. Needs aggressive blood sugar management to prevent complications
[2024-07-02] VITALS: BP 143/80; PULSE 80; PULSE 81; RESP 16; TEMP 36.1; O2SAT 98
[2024-07-02 04:00] VITALS: BP 131/79; PULSE 82; RESP 18; TEMP 36.4; O2SAT 98
[2024-07-02 06:00] VITALS: BMI 28.0
[2024-07-02] MEDS: INSULIN LISPRO (AdmeLOG) 1 UNIT/0.01 ML UNIT 4 UNIT SC ×2 (07:32→17:01)
[2024-07-02] MEDS: INSULIN LISPRO (AdmeLOG) 1 UNIT/0.01 ML UNIT SC ×2 (07:33→17:02)
[2024-07-02 08:00] VITALS: BP 166/91; PULSE 88; RESP 18; TEMP 36.1; O2SAT 96
[2024-07-02] MEDS: INSULIN GLARGINE (Lantus) 5 UNIT/0.05 ML (PER 5 UNITS) 20 UNIT SC (08:11)
[2024-07-02] MEDS: CLOPIDOGREL BISULFATE 75 MG TABLET PO (08:11)
[2024-07-02] MEDS: ASPIRIN EC 81 MG TABEC PO (08:11)
[2024-07-02] MEDS: PANTOPRAZOLE 40 MG TABLET PO (08:11)
[2024-07-02 08:45] LABS: Basophils % (Auto) 1 % (0-2.5); Eosinophils # (Auto) 0.3 Thou/mm3 (0.0-0.5); Eosinophils % (Auto) 4 % (0-10); Hemoglobin 13.6 g/dL (12.0-16.0); Immature Granulocytes % (Auto) 0 % (0-0); Immature Granulocytes Auto 0.03 Thou/mm3 (0.00-0.00); Lymphocytes # (Auto) 1.9 Thou/mm3 (1.0-4.8); Lymphocytes % (Auto) 23 % (10-50); Mean Corpuscular HGB Conc 32.4 g/dl (31.0-37.0); Mean Corpuscular Hemoglobin 29.9 pg (25.0-35.0); Mean Corpuscular Volume 92 fL (80-100); Monocytes # (Auto) 0.5 Thou/mm3 (0.0-0.8); Monocytes % (Auto) 6 % (0-12); Neutrophils # (Auto) 5.4 Thou/mm3 (1.8-7.7); Neutrophils % (Auto) 66 % (37-80); Nucleated Red Blood Cell % 0 /100 WBC (0); Platelet Count 232 Thou/mm3 (140-440); RDW Standard Deviation 44.8 fL (36.4-46.3); Red Blood Count 4.55 Miln/mm3 (4.00-5.20); White Blood Count 8.2 Thou/mm3 (3.6-11.0)
[2024-07-02 09:09] LABS: Albumin, Serum 4.3 gm/dL (3.4-4.8); Albumin/Globulin Ratio 1.8 (1.2-2.2); Alkaline Phosphatase 100 U/L (46-116); Anion Gap 9 (7-16); Aspartate Amino Transferase 19 U/L (0-34); BUN/Creatinine Ratio 37 Ratio (12-20); Bilirubin,Total 0.8 mg/dL (0.3-1.2); Blood Urea Nitrogen 22 mg/dL (9-23); Calcium 9.1 mg/dL (8.3-10.6); Calcium (Corrected) 9.1 mg/dL (8.5-10.1); Carbon Dioxide 25.2 mMol/L (20.0-31.0); Chloride 104 mMol/L (98-107); Creatinine (Component) 0.6 mg/dL (0.6-1.3); Estimated Creatinine Clearance 91.3 mL/min (>60); Globulin 2.4 gm/dL (2.3-3.5); Glucose 225 mg/dL (74-106); Magnesium 1.9 mg/dL (1.6-2.6); Osmolality,Calculated 285 (275-295); Potassium 3.5 mMol/L (3.4-5.1); Sodium 138 mMol/L (136-145); Total Protein 6.7 gm/dL (5.7-8.2); eGFR > 60 See Note
[2024-07-02 09:11] LABS: Alanine Aminotransferase 14 U/L (10-49)
[2024-07-02 12:00] VITALS: BP 145/84; PULSE 88; RESP 17; TEMP 36.2; O2SAT 94
[2024-07-02 16:00] VITALS: BP 161/86; PULSE 91; RESP 18; TEMP 36.7; O2SAT 95
--- NOTE | 2024-07-02 16:00 | PD.RESPRO ---
Documentation for date of: 07/02/24 Subjective Subjective Interval history: Patient seen today at the bedside found awake, alert, oriented x3. No overnight events reported. No active complaints at this time. Patient continues with some mild weakness in RUE but improving. Vital signs stable at this time. Labs at this time unremarkable. Plans was to discharge the patient but still coordinating home health services. Will have Physical therapy re-evaluate patient in the am. Exam Vital Signs Temp Pulse Resp BP Pulse Ox O2 Del Method 97.1 F 88 17 145/84 H 94 L Room Air 07/02/24 12:00 07/02/24 12:00 07/02/24 12:00 07/02/24 12:00 07/02/24 12:00 07/02/24 12:00 Narrative Exam Physical Exam GENERAL: NAD, NC/AT, responsive/cooperative. A&Ox3 HEENT: Moist mucosa. CARDIO: No chest pain on palpation. Heart RRR, no obvious murmurs PULM: No noted coughing/dyspnea. Lungs CTA B/L, no R/W/R GI: Abdomen soft, nondistended, no pain on palpation. BSx4 URO/SALES AND SERVICE CONSULTANT:: No further abnormalities noted. Reed catheter SKIN/MSK/EXT: No wounds/rashes/edema/amputations, no pain on palpation. Pedal pulses present B/L NEURO: able to move all 4 extremities with some weakness in RUE but improving as per patient, some mild facial drooping noted Objective Labs 07/02/24 08:08 07/02/24 08:08 Labs: Laboratory Results - last 24 hr 07/02/24 08:08 WBC 8.2 RBC 4.55 Hgb 13.6 Hct 42.0 MCV 92 MCH 29.9 MCHC 32.4 RDW Std Deviation 44.8 Plt Count 232 Neut % (Auto) 66 Lymph % (Auto) 23 [place] % (Auto) 6 Eos % (Auto) 4 Baso % (Auto) 1 Neut # (Auto) 5.4 Lymph # (Auto) 1.9 [place] # (Auto) 0.5 Eos # (Auto) 0.3 Baso # (Auto) 0.0 Immature Gran # (Auto) 0.03 H Absolute Nucleated RBC 0.00 Immature Gran % 0 Nucleated RBC % 0 Sodium 138 Potassium 3.5 D Chloride 104 Carbon Dioxide 25.2 Anion Gap 9 BUN 22 Creatinine 0.6 Estim Creat Clear Calc 91.3 eGFR > 60 BUN/Creatinine Ratio 37 H Glucose 225 H Calculated Osmolality 285 Calcium 9.1 Corrected Calcium 9.1 Magnesium 1.9 Total Bilirubin 0.8 AST 19 ALT 14 Alkaline Phosphatase 100 Total Protein 6.7 Albumin 4.3 Globulin 2.4 Albumin/Globulin Ratio 1.8 Quality Measures Quality Measures none Advance care planning discussed with:: patient Assessment & Plan Assessment Current Active Medications: Generic Name Dose Route Start Last Admin Trade Name Freq PRN Reason Stop Dose Admin Acetaminophen 650 mg 07/01/24 10:44 Acetaminophen Supp [address] 07/29/24 18:24 Q6HR PRN FEVER>101.5 Aspirin 81 mg 06/30/24 09:00 07/02/24 08:11 Aspirin Ec 81 Mg Tabec PO 07/30/24 08:59 81 mg QDAY DOMINGO Administration Atorvastatin Calcium 80 mg 06/30/24 21:00 07/01/24 21:01 Atorvastatin Calcium 20 Mg Tablet PO 07/30/24 20:59 80 mg HS DOMINGO Administration Clopidogrel Bisulfate 75 mg 06/30/24 13:30 07/02/24 08:11 Clopidogrel Bisulfate 75 Mg Tablet PO 07/30/24 13:29 75 mg QDAY DOMINGO Administration Dextrose 25 ml 06/29/24 18:30 Dextrose 50%-Water Inj 50 Ml Syringe IV 07/29/24 18:29 Q15MIN PRN BG 50-70 responsive npo pt Dextrose 50 ml 06/29/24 18:30 Dextrose 50%-Water Inj 50 Ml Syringe IV 07/29/24 18:29 Q15MIN PRN BG <50 OR BG <70 & pt unresponsive Glucagon 1 mg 06/29/24 18:30 Glucagon Inj 1 Mg Vial IM Q15MIN PRN BG <70, and no IV access Insulin Glargine 20 unit 07/01/24 09:00 07/02/24 08:11 Insulin Glargine (Lantus) 5 Unit/0.05 Ml (Per 5 Units) SC 07/31/24 08:59 20 unit QDAY DOMINGO Administration Insulin Human Lispro 4 unit 07/01/24 11:30 07/02/24 11:43 Insulin Lispro (Admelog) 1 Unit/0.01 Ml Unit SC 07/31/24 11:29 Not Given AC DOMINGO Insulin Human Lispro 0 unit 07/01/24 11:30 07/02/24 11:43 Insulin Lispro (Admelog) 1 Unit/0.01 Ml Unit SC 07/31/24 11:29 Not Given AC COUNTS INCLUDE 234 BEDS AT THE [facility] Protocol Ondansetron HCl 4 mg 06/29/24 18:25 Ondansetron Inj 2 Mg/Ml Inj 2 Ml IV 07/29/24 18:24 Q6H PRN NAUSEA OR VOMITING Protocol Pantoprazole Sodium 40 mg 07/01/24 09:00 07/02/24 08:11 Pantoprazole 40 Mg Tablet PO 07/31/24 08:59 40 mg QDAY COUNTS INCLUDE 234 BEDS AT THE [facility] Administration Plan 68 y/o F with PMHx of Diabetes and Hypertension taking no medications presented to the ED due to facial drooping, slurred speech and ataxia. Admitted for Stroke work-up. #Acute infarct left brainstem at pontine level # CVA # Facial droop # Ataxia Patient reports onset of symptoms began when she woke up and became worse througout the day. Patient was poor candidate for tPA Patient does have risk factors including Diabetes and Hypertension that are poorly managed as patient does not take medications Head CT showed Age indeterminate small infarct left brainstem pontine level head and neck CTA shows Suspicious for 60% stenosis right posterior cerebral artery junction P1 P2 segments EKG shows sinus tachycardia, QTc 482 Patient was seen by teleneuro in ED, NIHSS 4, right-sided facial droop noted, teleneuro recommends aspirin, MRI, A1c, blood pressure recommendations 180-200 over the next 24 hours, PT/ELECTRIC CUTTER OPERATOR eval, echo and neurology follow-up. Patient was given aspirin 325 as needed in ED, patient failed swallow eval in ED, patient was given labetalol 20 mg by teleneuro for elevated blood pressure and patient was given Zofran MRI positive for 18 mm acute infarct left brainstem pontine level, 90% stenosis P2 segment left posterior cerebral artery post speech therapy evaluation, patient started on carb consistent cardiac diet Hemoglobin A1c 10.6, triglycerides 173, cholesterol 263, LDL 176, TSH normal. -Continue aspirin 81 mg and Plavix 75 mg daily -on atorvastatin 80 mg at bedtime -Follow-up echo with bubble study -Neurochecks every 4 hours -Head of bed elevated more than 30 degrees -Aspiration precautions -Consulted neurology, appreciate recommendations -Referral to physical therapy, recommends discharge home with home health #Diabetes mellitus Patient does have history of diabetes, has poor outpatient follow-up does not take any medications at home Hemoglobin A1c 10.6 -SSI -Hypoglycemia protocol in place # Asymptomatic bacteriuria Patient denies any dysuria or other symptoms, was given ceftriaxone in ED UA was significant for urine specific gravity 1.041, urine glucose 4+, urine nitrate positive, urine leukocyte esterase positive, urine RBC 24, urine WBC 49, urine bacteria rare Urine culture showed GNR, patient denies any symptoms # Hypertension # Hypercholesterolemia # Dyslipidemia # Hypertriglyceridemia - on atorvastatin 80 mg at bedtime # Electrolyte imbalance # Hypokalemia -Will correct and monitor electrolytes as needed Case discussed with my senior Dr. Chaudhary PGY-[address] Marie Sadler MD PGY-1 Disposition: Discharge possibly in am Fluids: None Feeding: Carb consistent Thrombo prophylaxis: SCDs Gastric Ulcer prophylaxis: Pantoprazole 40 mg PO daily CODE STATUS: Full code Attending Provider Attestation/Addendum 68-year-old female with history of hypertension, hyperlipidemia and type 2 diabetes mellitus who has not been compliant with any medication presented to the ER with slurred speech and ataxia found to have left brainstem pontine level ischemic infarct. Teleneurology was consulted and did not receive tPA as patient was out of window. Plan to admit the patient and start aspirin and SBP goal 1 60-1 80. MRI confirmed acute infarct left brainstem at the pontine level. Plan to continue PT/OT, aspirin, Plavix, Lipitor. Appreciate neurology input. Plan was to discharge the patient however patient is unable to be placed for acute rehab will order home health for PT. Will continue to monitor patient until social services aide obtain the requested services that patient needs. I reviewed above note and agree with findings and plans. I have also personally examined the patient with medicine team and went over assessment and plan with medical team including college intern and resident physician.
--- NOTE | 2024-07-02 16:13 | PC.SS ---
Rounding: Pending PT session 07/03, pt unable to DC home d/t none ambulatory
[2024-07-02 20:00] VITALS: BP 146/77; PULSE 90; RESP 18; TEMP 36.4; O2SAT 96
[2024-07-02] MEDS: ATORVASTATIN CALCIUM 20 MG TABLET 80 MG PO (21:21)
--- NOTE | 2024-07-02 23:21 | VVPN_ITS ---
Telemedicine visit statement This visit was conducted with the use of phone was obtained on 07/02/24 at 2321. Documentation for date of: 07/02/24 Subjective Subjective Interval history: Patient is in [facility]. Presented with right hemiparesis affecting the face and upper extremity more than the right lower extremity. Denies any headache or dizziness. No vision symptoms reported. Virtual exam Vital Signs Temp Pulse Resp BP Pulse Ox O2 Del Method 97.6 F 90 18 146/77 H 96 Room Air 07/02/24 20:00 07/02/24 20:00 07/02/24 20:00 07/02/24 20:00 07/02/24 20:00 07/02/24 20:00 Objective Labs 07/03/24 05:40 07/03/24 05:40 Labs: Laboratory Results - last 24 hr 07/02/24 08:08 WBC 8.2 RBC 4.55 Hgb 13.6 Hct 42.0 MCV 92 MCH 29.9 MCHC 32.4 RDW Std Deviation 44.8 Plt Count 232 Neut % (Auto) 66 Lymph % (Auto) 23 [place] % (Auto) 6 Eos % (Auto) 4 Baso % (Auto) 1 Neut # (Auto) 5.4 Lymph # (Auto) 1.9 [place] # (Auto) 0.5 Eos # (Auto) 0.3 Baso # (Auto) 0.0 Immature Gran # (Auto) 0.03 H Absolute Nucleated RBC 0.00 Immature Gran % 0 Nucleated RBC % 0 Sodium 138 Potassium 3.5 D Chloride 104 Carbon Dioxide 25.2 Anion Gap 9 BUN 22 Creatinine 0.6 Estim Creat Clear Calc 91.3 eGFR > 60 BUN/Creatinine Ratio 37 H Glucose 225 H Calculated Osmolality 285 Calcium 9.1 Corrected Calcium 9.1 Magnesium 1.9 Total Bilirubin 0.8 AST 19 ALT 14 Alkaline Phosphatase 100 Total Protein 6.7 Albumin 4.3 Globulin 2.4 Albumin/Globulin Ratio 1.8 Assessment & Plan Assessment 1) Cerebrovascular accident: Status: Acute Assessment and plan: MRI brain showed left pontine infarct Presenting as right hemiparesis affecting face and upper extremity more than the lower extremity. Improving significantly from admission. 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 Continue with the physical therapy. Follow-up with echocardiogram. (2) UTI (urinary tract infection): Status: Acute Assessment and plan: Continue with IV antibiotics for E. coli (3) Type 2 diabetes mellitus: Status: Acute Assessment and plan: A1c: 10.4. On insulin No prior history noted. Needs aggressive blood sugar management to prevent complications
[2024-07-03] VITALS: BP 125/71; PULSE 81; RESP 15; TEMP 36.1; O2SAT 95
[2024-07-03 04:00] VITALS: BP 137/73; PULSE 81; RESP 18; TEMP 36.6; O2SAT 96
[2024-07-03 06:00] VITALS: BMI 28.1
[2024-07-03 06:18] LABS: Basophils # (Auto) 0.1 Thou/mm3 (0.0-0.2); Basophils % (Auto) 1 % (0-2.5); Eosinophils # (Auto) 0.3 Thou/mm3 (0.0-0.5); Eosinophils % (Auto) 4 % (0-10); Hematocrit 38.5 % (36.0-46.0); Hemoglobin 12.8 g/dL (12.0-16.0); Immature Granulocytes % (Auto) 1 % (0-0); Immature Granulocytes Auto 0.04 Thou/mm3 (0.00-0.00); Lymphocytes # (Auto) 2.1 Thou/mm3 (1.0-4.8); Lymphocytes % (Auto) 26 % (10-50); Mean Corpuscular HGB Conc 33.2 g/dl (31.0-37.0); Mean Corpuscular Hemoglobin 30.1 pg (25.0-35.0); Mean Corpuscular Volume 91 fL (80-100); Monocytes # (Auto) 0.6 Thou/mm3 (0.0-0.8); Monocytes % (Auto) 8 % (0-12); Neutrophils # (Auto) 4.7 Thou/mm3 (1.8-7.7); Neutrophils % (Auto) 60 % (37-80); Nucleated Red Blood Cell % 0 /100 WBC (0); Platelet Count 223 Thou/mm3 (140-440); Red Blood Count 4.25 Miln/mm3 (4.00-5.20); White Blood Count 7.9 Thou/mm3 (3.6-11.0)
[2024-07-03 06:49] LABS: Alanine Aminotransferase 11 U/L (10-49); Albumin, Serum 3.9 gm/dL (3.4-4.8); Albumin/Globulin Ratio 1.7 (1.2-2.2); Alkaline Phosphatase 98 U/L (46-116); Anion Gap 10 (7-16); Aspartate Amino Transferase 13 U/L (0-34); BUN/Creatinine Ratio 34 Ratio (12-20); Bilirubin,Total 0.7 mg/dL (0.3-1.2); Blood Urea Nitrogen 24 mg/dL (9-23); Calcium 9.3 mg/dL (8.3-10.6); Calcium (Corrected) 9.4 mg/dL (8.5-10.1); Carbon Dioxide 26.4 mMol/L (20.0-31.0); Chloride 103 mMol/L (98-107); Creatinine (Component) 0.7 mg/dL (0.6-1.3); Estimated Creatinine Clearance 78.3 mL/min (>60); Globulin 2.3 gm/dL (2.3-3.5); Glucose 233 mg/dL (74-106); Osmolality,Calculated 288 (275-295); Phosphorous 4.5 mg/dL (2.4-5.1); Potassium 3.8 mMol/L (3.4-5.1); Sodium 139 mMol/L (136-145); Total Protein 6.2 gm/dL (5.7-8.2); eGFR > 60 See Note
[2024-07-03 07:30] VITALS: BP 174/100; PULSE 92; RESP 18; TEMP 36.6; O2SAT 97
[2024-07-03] MEDS: INSULIN LISPRO (AdmeLOG) 1 UNIT/0.01 ML UNIT 4 UNIT SC (07:58)
[2024-07-03] MEDS: INSULIN LISPRO (AdmeLOG) 1 UNIT/0.01 ML UNIT SC ×2 (07:59→12:01)
--- NOTE | 2024-07-03 08:07 | PC.NURSE ---
Notified Dr Gomez patient's B/P is 174/100 this morning with a HR:92. No new orders given at this time, Md to review and place orders.
[2024-07-03] MEDS: PANTOPRAZOLE 40 MG TABLET PO (08:14)
[2024-07-03] MEDS: ASPIRIN EC 81 MG TABEC PO (08:14)
[2024-07-03] MEDS: INSULIN GLARGINE (Lantus) 5 UNIT/0.05 ML (PER 5 UNITS) 20 UNIT SC (08:14)
[2024-07-03] MEDS: CLOPIDOGREL BISULFATE 75 MG TABLET PO (08:15)
[2024-07-03 10:00] VITALS: BP 159/98; PULSE 96
[2024-07-03] MEDS: LOSARTAN POTASSIUM 25 MG TABLET PO (10:00)
[2024-07-03 11:41] VITALS: BP 173/96; PULSE 95; RESP 18; TEMP 36.3; O2SAT 99
[2024-07-03] MEDS: INSULIN LISPRO (AdmeLOG) 1 UNIT/0.01 ML UNIT 6 UNIT SC (12:01)
--- NOTE | 2024-07-03 12:34 | PC.CM ---
Addendum entered by Angelita Cunha RN 07/04/24 09:16: Patient accepted by [facility]. Start of care set for 07/05. Addendum entered by Halle Burrows RN 07/03/24 18:38: [facility] accepted the pt. Booked [facility]. Pending start of care date. Addendum entered by Halle Burrows RN 07/03/24 14:23: sent updated face sheet and dc summary to [facility]. Addendum entered by Halle Burrows RN 07/03/24 14:13: 11 HH agencies declined the pt. No accepting as of now. Addendum entered by Halle Burrows RN 07/03/24 12:34: HH referral sent on [facility]. Awaiting responses. Pending Start of care date. Original Note: spoke to Yessica COHN that pt needs HH and has no preference of HH agency.
--- NOTE | 2024-07-03 13:45 | ESDS_ITS ---
<Statement entered by Elizabeth Salazar MD - 07/09/24 12:41> I reviewed above note and agree with findings and plans. I have also personally examined the patient with medicine team and went over assessment and plan with medical team including sports apparel internship and resident physician. <Statement entered by Leatha Haley MD - 07/03/24 15:59> Patient was seen and examined at bedside. I agree on most of the discharge summary. Patient will follow-up with the neurologist and her primary care physician Dr. Davis in outpatient settings. She will get also home health PT to achieve safety measures. - Patient's plan and care discussed with my attending, Dr. Marie Haley MD Internal Medicine PGY-2 Planned Discharge Date 07/03/24 DS: Providers Provider Date of admission: 06/29/24 18:25 Primary care physician: jB Davis ([facility])MD Admitting Provider: Elizabeth Salazar MD Attending Provider on Admission: Elizabeth Salazar MD Consults: 06/29/24 16:19 Consult to Neurology / Tele-Neurology Routine Comment: Consulting Provider: [facility] 06/29/24 18:32 Referral Physical Therapy Routine Comment: Physician Instructions: Referral Speech Therapy Routine Comment: 06/29/24 18:37 Consult to Neurology / Tele-Neurology Stat Comment: Stroke Workup Consulting Provider: Flex Dunham 06/29/24 18:43 Referral Registered Dietitian Routine Comment: Referral Registered Dietitian Urgent Comment: Attending Provider on DC: Dr. Elizabeth Salazar Discharging Provider: Dr. Elizabeth Salazar DS: Diagnosis Problem List Completed Was Problem List Reviewed/Reconciled?: Yes Hospital Course Hospital Course Hospital course: Patient is a 68 yo F w/ DM and HTN who presents with facial drooping, slurred speech and ataxia. According to the patient she woke up at 7 AM this morning, experienced she was having difficulty walking, was unable to take a shower, patient's sister saw the patient around 10 AM, noticed mild facial droop, patient did not notice symptoms of slurring of speech and extensive facial droop on the right until the patient's daughter saw the patient later in the evening. Stroke alert was called in the ED for the patient, was seen by teleneurologist, NIHSS score 4, per teleneuro patient does have a CVA due to embolism of right posterior cerebral artery, recommends aspirin, MRI, A1c, blood pressure recommendations 180-200 over the next 24 hours, PT/HOSE INSPECTOR AND PATCHER eval, echo and neurology follow-up. Of note patient has history of diabetes and hypertension, does not follow-up regularly with a PCP and denies taking any medications at home. ED Vitals: On presentation BP 213/113, P 109, RR 16 temp 98.4, O2 sat 99. ED labs significant for sodium 135 glucose 440, alk phos 137, albumin 5.1, urine specific gravity 1.041, urine glucose 4+, urine nitrate positive, urine leukocyte esterase positive, urine RBC 24, urine WBC 49, urine bacteria rare, urine talk screen negative. CT scan of head shows Age indeterminate small infarct left brainstem pontine level head and neck CTA shows Suspicious for 60% stenosis right posterior cerebral artery junction P1 P2 segments EKG shows sinus tachycardia, QTc 482. While admitted labs showed Hemoglobin A1c 10.6, triglycerides 173, cholesterol 263, LDL 176, TSH normal. Dr. Dunham(neurologist) examined the patient and recommended aspirin 81 mg and Plavix 75 mg daily, atorvastatin 80 mg at bedtime. Echo showed negative bubble study and normal EF. HOSE INSPECTOR AND PATCHER evaluated and passed the patient for normal diet. PT walked 220 feet with patient on Wednesday and recommended HH or outpatient PT with patient. She is able to ambulate with walker. She still reports mild right sided weakness and facial droop. Patient states that she will be able to go home with her daughter and sister who will be able to watch after her while she recovers. Patient initially thought she was uninsured but after further inquiry we discovered she was covered by medicare. Patient is clinically stable for discharge. She agrees with the plan. #Acute infarct left brainstem at pontine level # CVA # Facial droop # Ataxia #Diabetes mellitus # Asymptomatic bacteriuria # Hypertension # Hypercholesterolemia # Dyslipidemia # Hypertriglyceridemia # Electrolyte imbalance # Hypokalemia We appreciate the opportunity to be involved with your care. The patient's plan was discussed with attending Dr. Salazar and senior resident Dr. Sudha Barton, DO PGY1 Internal Medicine Time Spent with Patient Time attestation: Total time spent providing and/or coordinating discharge services: Time spent: Greater than 30 minutes Home Health Home Health Referral Orders: 07/02/24 10:07 Home Health Referral Routine Reason For Exam: PT Home-Bound The patient must either because of illness or injury, need the aid of supportive devices such as crutches, canes, wheelchairs, and walkers; the use of special transportation; or the assistance of another person in order to leave their place of residence; OR have a condition such that leaving his or her home is medically contraindicated. In addition, the patient also meets the following criteria: patient is normally unable to leave the home and leaving home requires considerable taxing effort. Addendum to Home Health Certification Practitioner's Certification: I certify that the patient has been under my care in the hospital and the care of attending physician (see below). We had a zjnx-[id number] encounter on (see date below). My clinical findings indicate that the patient is home bound per the above criteria and the Home Health Services noted in these orders are medically necessary. The primary reason for the oooj-dv-ekkz encounter is related to the fact that the patient requires home health services. Date Certifying Txxp-qw-Keni Physician Encounter: 06/29/24 Physician's Name who will Assume Oversight for [facility] Physician's Phone No.who will Assume Oversight for Service: [facility] [place] - Community Resources: No PT to Evaluate: Yes PT to evaluate and provide a treatmnet plan to increase patient's mobility and strength. Wound Care: No IV Therapy: No RN Safety Evaluation: Yes RN to evaluate and create a plan of care that will produce positive outcomes. Palliative Treatment: No Palliative treatment and evaluate the need for hospice. Home Health Aide - Personal Care: No Home Health Aide to assist with any ADL's. 07/03/24 11:20 Home Health Referral Routine Reason For Exam: PT Home-Bound The patient must either because of illness or injury, need the aid of supportive devices such as crutches, canes, wheelchairs, and walkers; the use of special transportation; or the assistance of another person in order to leave their place of residence; OR have a condition such that leaving his or her home is medically contraindicated. In addition, the patient also meets the following criteria: patient is normally unable to leave the home and leaving home requires considerable taxing effort. Addendum to Home Health Certification Practitioner's Certification: I certify that the patient has been under my care in the hospital and the care of attending physician (see below). We had a [id number]-za-[id number] encounter on (see date below). My clinical findings indicate that the patient is home bound per the above criteria and the Home Health Services noted in these orders are medically necessary. The primary reason for the mrik-tj-[id number] encounter is related to the fact that the patient requires home health services. Date Certifying Fewk-lm-Brfh Physician Encounter: 06/29/24 Physician's Name who will Assume Oversight for Services: jB Kuo) Physician's Phone No.who will Assume Oversight for Service: [employer]EL[employer] - Community Resources: No PT to Evaluate: Yes PT to evaluate and provide a treatmnet plan to increase patient's mobility and strength. Wound Care: No IV Therapy: No RN Safety Evaluation: Yes RN to evaluate and create a plan of care that will produce positive outcomes. Palliative Treatment: No Palliative treatment and evaluate the need for hospice. Home Health Aide - Personal Care: No Home Health Aide to assist with any ADL's. Exam Vital Signs Temp Pulse Resp BP Pulse Ox O2 Del Method 97.3 F 95 18 173/96 H 99 Room Air 07/03/24 11:41 07/03/24 11:41 07/03/24 11:41 07/03/24 11:41 07/03/24 11:41 07/03/24 07:30 Narrative Exam General: Well appearing, well nourished, in no distress. Oriented x 3, normal mood and affect HEENT: Normocephalic, atraumatic, conjunctiva clear, sclera non-icteric, EOM intact, PERRL, mild R-sided facial droop Heart: Regular rate and rhythm, no murmur or gallop Lungs: Clear to auscultation and percussion Abdomen:soft, nontender to palpation, non distended Extremities: No amputations or deformities, cyanosis, edema or varicosities, peripheral pulses intact Neurologic:Moves all extremities spontaneously, NIHSS 4 Psychiatric: Cooperative, normal mood and affect. Discharge Plan Plan Patient Disposition: Home w/HOME HEALTH Disposition Comment: stable Patient condition on transfer: Stable Care Plan Goals: Recommend following up with your primary care physician within 5 to 7 days of discharge from hospital, as you will require refills on your medications, recommend strict compliance with medications and diabetes control to prevent further strokes. You have been started on new medications including aspirin, atorvastatin, clopidogrel, losartan, Protonix, and insulin. In case you do not have a primary care physician, you can follow-up with [facility], residents clinic at [facility]. You can call to set up an appointment. [facility] [address] [place] [address] In case of worsening symptoms please return to the emergency room. Prescriptions/Referrals Prescriptions/Med Rec: New clopidogrel 75 mg Tablet 75 mg PO QDAY 30 Days Qty: 30 0RF aspirin 81 mg Tablet,Delayed Release (Dr/Ec) 81 mg PO QDAY 30 Days Qty: 30 0RF pantoprazole 40 mg Tablet,Delayed Release (Dr/Ec) 40 mg PO QDAY 14 Days Qty: 14 0RF insulin glargine [Lantus U-100 Insulin] 100 unit/mL Solution 20 unit SCi QDAY 30 Days Qty: 6 0RF insulin glargine [Lantus Solostar U-100 Insulin] 100 unit/mL (3 mL) insulin pen 28 unit subcut QAM Qty: 15 0RF (DME) pen needle, diabetic [1st Tier Unifine Pentips] 29 gauge x 1/2 needle See Rx Instructions .Route Qty: 100 0RF Rx Instructions: As directed (DME) blood-glucose meter [Blood Glucose Monitoring] Kit See Rx Instructions .Route Qty: 1 0RF Rx Instructions: As directed (DME) Blood Glucose Test Strip See Rx Instructions .Route Qty: 50 2RF Rx Instructions: As directed (DME) lancets [Lancets,Thin] 28 gauge misc See Rx Instructions .Route Qty: 100 0RF Rx Instructions: As directed losartan 25 mg Tablet 25 mg PO QDAY 30 Days Qty: 30 0RF atorvastatin 80 mg tablet 80 mg PO QDAY Qty: 30 0RF (DME) FreeStyle Cristina 3 Sensor Device See Rx Instructions .Route Qty: 1 0RF Rx Instructions: As directed (DME) FreeStyle Cristina 3 Marshall Misc See Rx Instructions .Route Qty: 1 0RF Rx Instructions: As directed Referrals: Bj Davis MD ([facility]) [Primary Care Provider] - Patient/Caregiver Discharge Instructions Education Materials: Effects of a Stroke on the ..., Diabetes and Heart Disease, Managing Type 2 Diabetes, How to Check Your Blood Sugar, Insulin How to Use and Where to Inject, Stroke Self Care After, Diabetes Carbs Fats Protein, Diabetes: Ways to Take Medicine, Arm Care After a Stroke, Insulin Injection Steps Print Language: Beninese Stand Alone Forms: Whit Award Info., Patient Portal Info Letter Discharge Order Discharge Orders: Discharge (Routine); Ordered 07/03/24 Ordered By: Rob Barton Quality Discharge Quality Measures VTE prophylaxis
--- NOTE | 2024-07-03 14:12 | PC.NURSE ---
Patient discharged home on home health with family via private vehicle. Patient transported to hospital's main entrance via wheelchair by HALFWAY HOUSE COUNSELOR. IV was removed, tolerated well. Discharge instructions were reviewed with patient and daughter at bedside, understanding verbalized. Nursing care ended at this time.
--- NOTE | 2024-07-03 23:06 | ESPR_ITS ---
Documentation for date of: 07/03/24 Subjective Subjective Interval history: Patient was seen in medtelemetry today at the bedside. Continues to have right upper motor neuron facial weakness and right upper extremity more than right lower extremity weakness, but significantly improved since admission. She is able to walk with a walker. She is tolerating oral diet well. No headache dizziness reported. Exam - Neurology Vital Signs Temp Pulse Resp BP Pulse Ox O2 Del Method 97.3 F 95 18 173/96 H 99 Room Air 07/03/24 11:41 07/03/24 11:41 07/03/24 11:41 07/03/24 11:41 07/03/24 11:41 07/03/24 07:30 Narrative Exam GENERAL APPEARANCE: Well hydrated, well-nourished in no acute distress. HEENT: Normocephalic, atraumatic, extraocular movements intact. Pupils: Equal reacting to light and accommodation NECK: Supple, no JVD or bruits. CARDIOVASULAR: Heart: S1, S2 heard, regular without S3-S4 or murmur no rubs or gallops. LUNGS/CHEST: Clear to auscultation bilaterally. No rails, rhonchi, or wheezing. Normal inspection. ABDOMEN: Soft, nontender, with normal bowel sounds. No pulsatile masses. No rebound, rigidity, or guarding. Normal inspection and palpation. EXTREMITIES: Normal inspection and palpation. No edema, clubbing or cyanosis. SKIN: Warm and dry without rashes. Normal inspection. MUSCULOSKELETAL: No cervical, thoracic, lumbar or midline bony tenderness. Normal inspection. NEURO: Alert, awake and oriented x3. Cranial nerves: II through XII grossly intact with exception of right facial weakness of upper motor neuron type.. Speech and language: Normal with no dysarthria or dysphasia. Motor system: Tone and bulk: Normal: Strength: Moves all 4 extremities; pronator drift noted in the right upper extremity, right upper and lower extremities have a strength of 4+/5, rest of the extremities: 5/5 throughout. deep tendon reflexes: 2+ bilaterally symmetrical. Plantar reflex: Downgoing bilaterally. Sensory system: Intact to all modalities of sensation bilaterally. Coordination: Intact to cumbbs-jyjo-kwpkyy and egwz-wdkz-oqub test bilaterally. But has mild dysmetria in the right upper extremity. No intention tremors noted. Gait: Able to walk with a walker, no signs of meningeal irritation noted. PSYCHIATRIC: Normal mood and affect. Objective Labs 07/03/24 05:40 07/03/24 05:40 Labs: Laboratory Results - last 24 hr 07/03/24 05:40 WBC 7.9 RBC 4.25 Hgb 12.8 Hct 38.5 MCV 91 MCH 30.1 MCHC 33.2 RDW Std Deviation 44.0 Plt Count 223 Neut % (Auto) 60 Lymph % (Auto) 26 [place] % (Auto) 8 Eos % (Auto) 4 Baso % (Auto) 1 Neut # (Auto) 4.7 Lymph # (Auto) 2.1 [place] # (Auto) 0.6 Eos # (Auto) 0.3 Baso # (Auto) 0.1 Immature Gran # (Auto) 0.04 H Absolute Nucleated RBC 0.00 Immature Gran % 1 H Nucleated RBC % 0 Sodium 139 Potassium 3.8 Chloride 103 Carbon Dioxide 26.4 Anion Gap 10 BUN 24 H Creatinine 0.7 Estim Creat Clear Calc 78.3 eGFR > 60 BUN/Creatinine Ratio 34 H Glucose 233 H Calculated Osmolality 288 Calcium 9.3 Corrected Calcium 9.4 Phosphorus 4.5 Magnesium 2.0 Total Bilirubin 0.7 AST 13 ALT 11 Alkaline Phosphatase 98 Total Protein 6.2 Albumin 3.9 Globulin 2.3 Albumin/Globulin Ratio 1.7 Assessment & Plan Assessment and plan (1) Cerebrovascular accident: Status: Acute Assessment and plan: MRI brain showed left pontine infarct Presenting as right hemiparesis affecting face and upper extremity more than the lower extremity. Improving significantly from admission. 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 Continue with the physical therapy. Echo: normal stable for d/c home and will see her in 2 weeks. (2) UTI (urinary tract infection): Status: Resolved Assessment and plan: treated with IV antibiotics for E. coli (3) Type 2 diabetes mellitus: Status: Acute Assessment and plan: A1c: 10.4. On insulin No prior history noted. Needs aggressive blood sugar management to prevent complications
== END 2024-07-03 14:12 | disposition home health service (06) | DRG 65 ==
LOC: SERX 17:45 → SERHOLD 18:47 → S2NX 23:07 → S3NX 07-02 01:48
PROVIDERS: Nurse Practitioner Family; Admitting Provider Internal Medicine; Emergency Provider Emergency Medicine; PCP Internal Medicine; Visit Provider Internal Medicine
DX: I63.431 Cerebral infarction due to embolism of right posterior cerebral artery (principal); G81.91 Hemiplegia, unspecified affecting right dominant side; N39.0 Urinary tract infection, site not specified; R29.704 NIHSS score 4; R29.810 Facial weakness; R26.0 Ataxic gait; R47.81 Slurred speech; I10 Essential (primary) hypertension; E78.00 Pure hypercholesterolemia, unspecified; E11.9 Type 2 diabetes mellitus without complications; E78.1 Pure hyperglyceridemia; B96.20 Unspecified Escherichia coli [E. coli] as the cause of diseases classified elsewhere; E87.6 Hypokalemia; Z91.148 Patient's other noncompliance with medication regimen for other reason
CPT/HCPCS: 36415; 70450; 70496; 70498; 70544; 80053; 80061; 80307; 81001; 83036; 83735; 84100; 84443; 84484; 85025; 85610; 85730; 87077; 87086; 87186; 92507; 92610; 93005; 93306; 96365; 96372; 96375; 97162; 99285; A4649; J0696; J1815; J2405; J2470; J3480; J3490; Q9967; A9270; J1920

== ENCOUNTER → 2024-11-13 | Outpatient (CLI) | payer BC, OTHER, SELFPAY ==
[2024-11-13 08:13] LABS: Collection Type, Urine Clean Catch
[2024-11-13 08:45] LABS: Basophils % (Auto) 1 % (0-2.5); Eosinophils # (Auto) 0.3 Thou/mm3 (0.0-0.5); Eosinophils % (Auto) 4 % (0-10); Immature Granulocytes % (Auto) 0 % (0-0); Immature Granulocytes Auto 0.03 Thou/mm3 (0.00-0.00); Lymphocytes # (Auto) 1.9 Thou/mm3 (1.0-4.8); Lymphocytes % (Auto) 25 % (10-50); Mean Corpuscular HGB Conc 31.7 g/dl (31.0-37.0); Mean Corpuscular Hemoglobin 28.6 pg (25.0-35.0); Mean Corpuscular Volume 90 fL (80-100); Monocytes # (Auto) 0.5 Thou/mm3 (0.0-0.8); Monocytes % (Auto) 7 % (0-12); Neutrophils # (Auto) 4.6 Thou/mm3 (1.8-7.7); Neutrophils % (Auto) 63 % (37-80); Nucleated Red Blood Cell % 0 /100 WBC (0); Platelet Count 295 Thou/mm3 (140-440); RDW Standard Deviation 44.8 fL (36.4-46.3); Red Blood Count 4.55 Miln/mm3 (4.00-5.20); White Blood Count 7.3 Thou/mm3 (3.6-11.0)
[2024-11-13 08:50] LABS: Vitamin B12 459 pg/mL (211-911); Vitamin D 25 Hydroxy Total 15.9 ng/mL (7.3-40.2)
[2024-11-13 09:14] LABS: Glucose Estimated Average 134 mg/dL (80-131); Hemoglobin A1C 6.3 % Hgb (4.8-6.0)
[2024-11-13 09:19] LABS: Alanine Aminotransferase 9 U/L (10-49); Albumin, Serum 4.2 gm/dL (3.4-4.8); Albumin/Globulin Ratio 1.8 (1.2-2.2); Alkaline Phosphatase 89 U/L (46-116); Anion Gap 8 (7-16); Aspartate Amino Transferase 12 U/L (0-34); BUN/Creatinine Ratio 23 Ratio (12-20); Bilirubin,Total 0.8 mg/dL (0.3-1.2); Blood Urea Nitrogen 16 mg/dL (9-23); Calcium 8.9 mg/dL (8.3-10.6); Calcium (Corrected) 8.9 mg/dL (8.5-10.1); Carbon Dioxide 29.6 mMol/L (20.0-31.0); Cardiac Risk Estimate 2.6 RATIO (3.7-5.6); Chloride 107 mMol/L (98-107); Cholesterol 125 mg/dL (132-200); Creatinine (Component) 0.7 mg/dL (0.6-1.3); Globulin 2.4 gm/dL (2.3-3.5); Glucose 119 mg/dL (74-106); HDL Cholesterol 49 mg/dL (40-60); LDL Cholesterol,Calculated 52 mg/dL (0-130); Osmolality,Calculated 290 (275-295); Potassium 3.6 mMol/L (3.4-5.1); Sodium 145 mMol/L (136-145); Thyroid Stimulating Hormone 2.81 uIU/mL (0.55-4.78); Total Protein 6.6 gm/dL (5.7-8.2); Triglycerides 119 mg/dL (30-150); Uric Acid 4.4 mg/dL (3.1-7.8); eGFR > 60 See Note
[2024-11-13 09:50] LABS: Bilirubin,Urine Negative (Negative); Blood,Urine Negative (Negative); Clarity,Urine Clear (Clear/Hazy); Color,Urine Yellow (Lt Yel-Yel); Glucose, Urine 4+ (Negative); Ketones,Urine Negative (Negative); Leukocyte Esterase,Urine Positive (Negative); Nitrite,Urine Negative (Negative); Protein,Urine Trace (Neg - Trace); RBC,Urine < 1 /hpf (0-3); Specific Gravity,Urine 1.033 (1.001-1.035); Squamous Epithelial Cell,Urine 1 /hpf (0-5); Urobilinogen,Urine Negative mg/dL (0.0-1.0); WBC,Urine 6 /hpf (0-5)
== END | disposition home or self-care (01) ==
PROVIDERS: PCP Internal Medicine; Referring Provider Internal Medicine; Visit Provider Internal Medicine
DX: Z00.00 Encounter for general adult medical examination without abnormal findings (principal); I10 Essential (primary) hypertension; E78.5 Hyperlipidemia, unspecified
CPT/HCPCS: 36415; 80053; 80061; 81001; 82306; 82607; 83036; 84443; 84550; 85025

== ENCOUNTER → 2025-03-20 | Outpatient (CLI) | payer BC, OTHER, SELFPAY ==
[2025-03-20 09:53] LABS: Collection Type, Urine Clean Catch
[2025-03-20 10:22] LABS: Basophils # (Auto) 0.0 Thou/mm3 (0.0-0.2); Basophils % (Auto) 1 % (0-2.5); Eosinophils # (Auto) 0.3 Thou/mm3 (0.0-0.5); Eosinophils % (Auto) 4 % (0-10); Hematocrit 37.3 % (36.0-46.0); Hemoglobin 12.2 g/dL (12.0-16.0); Immature Granulocytes Auto 0.02 Thou/mm3 (0.00-0.00); Lymphocytes # (Auto) 1.6 Thou/mm3 (1.0-4.8); Lymphocytes % (Auto) 22 % (10-50); Mean Corpuscular HGB Conc 32.7 g/dl (31.0-37.0); Mean Corpuscular Hemoglobin 29.9 pg (25.0-35.0); Mean Corpuscular Volume 91 fL (80-100); Monocytes # (Auto) 0.5 Thou/mm3 (0.0-0.8); Monocytes % (Auto) 7 % (0-12); Neutrophils # (Auto) 4.7 Thou/mm3 (1.8-7.7); Neutrophils % (Auto) 66 % (37-80); Nucleated Red Blood Cell # 0.00 Thou/mm3 (0.00-0.00); Nucleated Red Blood Cell % 0 /100 WBC (0); Platelet Count 263 Thou/mm3 (140-440); RDW Standard Deviation 46.8 fL (36.4-46.3); Red Blood Count 4.08 Miln/mm3 (4.00-5.20); White Blood Count 7.0 Thou/mm3 (3.6-11.0)
[2025-03-20 10:34] LABS: Bilirubin,Urine Negative (Negative); Blood,Urine Negative (Negative); Clarity,Urine Clear (Clear/Hazy); Color,Urine Yellow (Lt Yel-Yel); Glucose, Urine Negative (Negative); Hyaline Casts,Urine 1 /hpf (0-1); Ketones,Urine Negative (Negative); Leukocyte Esterase,Urine Positive (Negative); Nitrite,Urine Negative (Negative); PH,Urine 6.0 (5.0-7.0); Protein,Urine 1+ (Neg - Trace); RBC,Urine 6 /hpf (0-3); Specific Gravity,Urine 1.022 (1.001-1.035); Squamous Epithelial Cell,Urine 1 /hpf (0-5); Urobilinogen,Urine 2.0 mg/dL (0.0-1.0); WBC,Urine 8 /hpf (0-5)
[2025-03-20 10:34] LABS: Glucose Estimated Average 143 mg/dL (80-131); Hemoglobin A1C 6.6 % Hgb (4.8-6.0)
[2025-03-20 10:54] LABS: Alanine Aminotransferase 8 U/L (10-49); Albumin, Serum 4.3 gm/dL (3.4-4.8); Albumin/Globulin Ratio 1.7 (1.2-2.2); Alkaline Phosphatase 79 U/L (46-116); Anion Gap 9 (7-16); Aspartate Amino Transferase 14 U/L (0-34); BUN/Creatinine Ratio 19 Ratio (12-20); Bilirubin,Total 0.7 mg/dL (0.3-1.2); Blood Urea Nitrogen 13 mg/dL (9-23); Calcium 9.7 mg/dL (8.3-10.6); Calcium (Corrected) 9.7 mg/dL (8.5-10.1); Carbon Dioxide 28.7 mMol/L (20.0-31.0); Cardiac Risk Estimate 2.6 RATIO (3.7-5.6); Chloride 107 mMol/L (98-107); Cholesterol 142 mg/dL (132-200); Creatinine (Component) 0.7 mg/dL (0.6-1.3); Globulin 2.5 gm/dL (2.3-3.5); Glucose 128 mg/dL (74-106); HDL Cholesterol 54 mg/dL (40-60); LDL Cholesterol,Calculated 62 mg/dL (0-130); Osmolality,Calculated 290 (275-295); Potassium 4.5 mMol/L (3.4-5.1); Sodium 145 mMol/L (136-145); Thyroid Stimulating Hormone 2.96 uIU/mL (0.55-4.78); Total Protein 6.8 gm/dL (5.7-8.2); Triglycerides 131 mg/dL (30-150); eGFR > 60 See Note
[2025-03-20 10:57] LABS: Vitamin B12 517 pg/mL (211-911); Vitamin D 25 Hydroxy Total 23.4 ng/mL (7.3-40.2)
[2025-03-20 11:03] LABS: Uric Acid 4.6 mg/dL (3.1-7.8)
== END | disposition home or self-care (01) ==
PROVIDERS: PCP Internal Medicine; Referring Provider Internal Medicine; Visit Provider Internal Medicine
DX: Z00.00 Encounter for general adult medical examination without abnormal findings (principal); I10 Essential (primary) hypertension; E78.5 Hyperlipidemia, unspecified
CPT/HCPCS: 36415; 80053; 80061; 81001; 82306; 82607; 83036; 84443; 84550; 85025